=== PATIENT | female | born 1990 | race Caucasian/White ===

== ENCOUNTER 2024-02-10 12:55 | Outpatient (CLI) | payer OTHER, SELFPAY ==
--- OUTSIDE RECORDS SUMMARY | 2024-02-06 15:54 | XMS_ITS ---
Author Organization [facility] Address [address] [place] [address] Care Team Providers Care Storage Battery Inspector Name Role Phone None, None Primary Care Provider UnavailARON Sandy Unavailable [phone] Nicole Grigsby Unavailable [phone] REASON FOR VISIT CORRECTIVE THERAPIST Visit #3, Start of CORRECTIVE THERAPIST Care 07/15/23, Dr. Freedman, MTD/Chronic Throat Clearing Encounters Encounter Location Date Provider Diagnosis [facility] [place] [address] [facility] [address] [place] [address] 08/05/2023 Nicole Grigsby Dysphonia R49.0 and Chronic throat clearing R09.89 Assessments Encounter Date Diagnosis (ICD Code) Assessment Notes Treatment Notes Treatment Clinical Notes Section Notes 08/05/2023 Dysphonia (ICD-10 - R49.0) Cont plan. Review lower abdominal breathing exercises. Continue to advance easy/resonant voice at sentence and paragraph level 08/05/2023 Chronic throat clearing (ICD-10 - R09.89) Plan Of Treatment Treatment Notes Assessment Notes Dysphonia Cont plan. Review lo wer abdominal breathing exercises. Continue to advance easy/resonant voice at sentence and paragraph level Progress Notes * Cherelle LEALDOB:[birth year] (34 yo F)Acc No.[id number]:08/05/2023 Patient: Cherelle KERNS Provider: Evangelist Grigsby MS, [facility]-CORRECTIVE THERAPIST :1990 A ge:33 Y S ex:Female Date:08/05/2023 Address:[address] [place] [address] , [facility] Subjective: * Chief Complaints: * 1 . CORRECTIVE THERAPIST Visit #3, Start of CORRECTIVE THERAPIST Care 07/15/23, Dr. Freedman, MTD/Chronic Throat Clearing. * Medical History: Objective: * Vitals: * Examination: F indings: P atient will show a good understanding of optimum vocal hygiene patterns with min cues: GOAL PROGRESSING. Introduced lower abdominal breathing exercises with handout, demo and practice. Previous: Discussed the importance of optimum hydration and encouraged the patient to consume more water daily- the patient reports drinking about 80oz of water each day and 2 cups coffee.? Encouraged more frequent steam inhalation. Patient will show 100% accy with laryngeal massage and other manual techniques with min cues: GOAL MET. The patient demonstrated simple laryngeal massage with 100% accuracy independently, improved from max cues initially. Patient will show 90% accy with semi-occluded vocal tract exercises with min cues: GOAL PROGRESSING. The patient demonstrated straw phonation with 90% accuracy and min verbal cues to focus on vibrations in the lips. Previous: I ntroduced straw phonation with mod demo and verbal cues to focus on buzzy/easy. Explained rationale for SOVTs with good understanding shown. Patient will show 90% accy with resonant voice during conversational speech with min cues: GOAL PROGRESSING. The patient demonstrated resonant voice at word and phrase level with 80% accuracy and min demo and verbal cues to start with a /hm/ to initiate breath flow and to attend to final sounds. The patient additionally demonstrated easy and breath powered voice on yawn sigh exercises with 90% accuracy and min demo and verbal cues to keep it easy and use her head voice. Patient will use cough substitutes and reduce throat clearing frequency by at least 80%, per patient report: GOAL PROGRESSING. The patient reports that she has been clearing her throat less, and no throat clearing was noted during today's session. Previous: Educated patient about Irritable Larynx Syndrome and underlying mechanisms for chronic throat clearing. Copy of ILS article provided. Discussed rationale for behavioral intervention. Instructed pt in 3 throat clearing substitutes with demo, practice, and handout. Csr Technician Goal: The patient will be able to use normal voice quality 80% of the time in their daily environment as measured by patient report. Assessment: * Assessment: 1. D ysphonia - R49.0 (Primary) 2 . C hronic throat clearing - R09.89 ? Plan: * Treatment: * * Electronic signature of Layla Grigsby MS,CCC-CORRECTIVE THERAPIST on 02/06/2024 at 03:54 PM PLANT OPERATIONS MANAGER Sign off status: Pending * Provider: Evangelist Grigsby MS, CCC-CORRECTIVE THERAPIST Date: 0 08/05/2023 Generated for Printi ng/Fajoshg/eTransmitting on: 1 04/08/2023 03:54 PM PLANT OPERATIONS MANAGER History and Physical Notes * Examination Category Sub-Category Detail Notes Category Not es Findings Patient will show a good understanding of optimum vocal hygiene patterns with min cues: GOAL PROGRESSING. Introduced lower abdominal breathing exercises with handout, demo and practice. Previous: Discussed the importance of optimum hydration and encouraged the patient to consume more water daily- the patient reports drinking about 80oz of water each day and 2 cups coffee. Encouraged more frequent steam inhalation. Patient will show 100% accy with laryngeal massage and other manual techniques with min cues: GOAL MET. The patient demonstrated simple laryngeal massage with 100% accuracy independently, improved from max cues initially. Patient will show 90% accy with semi-occluded vocal tract exercises with min cues: GOAL PROGRESSING. The patient demonstrated straw phonation with 90% accuracy and min verbal cues to focus on vibrations in the lips. Previous: Introduced straw phonation with mod demo and verbal cues to focus on buzzy/easy. Explained rationale for SOVTs with good understanding shown. Patient will show 90% accy with resonant voice during conversational speech with min cues: GOAL PROGRESSING. The patient demonstrated resonant voice at word and phrase level with 80% accuracy and min demo and verbal cues to start with a /hm/ to initiate breath flow and to attend to final sounds. The patient additionally demonstrated easy and breath powered voice on yawn sigh exercises with 90% accuracy and min demo and verbal cues to keep it easy and use her head voice. Patient will use cough substitutes and reduce throat clearing frequency by at least 80%, per patient report: GOAL PROGRESSING. The patient reports that she has been clearing her throat less, and no throat clearing was noted during today's session. Previous: Educated patient about Irritable Larynx Syndrome and underlying mechanisms for chronic throat clearing. Copy of ILS article provided. Discussed rationale for behavioral intervention. Instructed pt in 3 throat clearing substitutes with demo, practice, and handout. [facility] Goal: The patient will be able to use normal voice quality 80% of the time in their daily environment as measured by patient report.
--- OUTSIDE RECORDS SUMMARY | 2024-02-06 15:54 | XMS_ITS ---
Author Organization [facility] Address [address] [place] [address] Care Team Providers Care Hydroelectric Plant Maintainer Name Role Phone None, None Primary Care Provider UnavailARON Sandy Unavailable [phone] Nicole Grigsby Unavailable [phone] REASON FOR VISIT OSD CLERK Visit #3, Start of OSD CLERK Care 07/15/23, Dr. Freedman, MTD/Chronic Throat Clearing Encounters Encounter Location Date Provider Diagnosis [facility] [address] [place] [address] 08/13/2023 Nicole Grigsby Dysphonia R49.0 and Chronic throat clearing R09.89 Assessments Encounter Date Diagnosis (ICD Code) Assessment Notes Treatment Notes Treatment Clinical Notes Section Notes 08/13/2023 Dysphonia (ICD-10 - R49.0) Cont plan. Review lower abdominal breathing exercises. Continue to advance easy/resonant voice at sentence and paragraph level 08/13/2023 Chronic throat clearing (ICD-10 - R09.89) Plan Of Treatment Treatment Notes Assessment Notes Dysphonia Cont plan. Review lo wer abdominal breathing exercises. Continue to advance easy/resonant voice at sentence and paragraph level Progress Notes * Cherelle LEALDOB:[birth year] (34 yo F)Acc No.[id number]:08/13/2023 Patient: Cherelle KERNS Provider: Evangelist Grigsby MS, [facility]-OSD CLERK :1990 A ge:33 Y S ex:Female Date:08/13/2023 Address:[address] [place] [address] , [facility] Subjective: * Chief Complaints: * 1 . OSD CLERK Visit #3, Start of OSD CLERK Care 07/15/23, Dr. Freedman, MTD/Chronic Throat Clearing. [...] clearing substitutes with demo, practice, and handout. [facility] Goal: The patient will be able to use normal voice quality 80% of the time in their daily environment as measured by patient report. Assessment: * Assessment: 1. D ysphonia - R49.0 (Primary) 2 . C hronic throat clearing - R09.89 ? Plan: * Treatment: * * Electronic signature of Layla Grigsby MS,CCC-OSD CLERK on 02/06/2024 at 03:54 PM DIRECT MAIL MARKETER Sign off status: Pending * Provider: Evangelist Grigsby MS, CCC-OSD CLERK Date: 0 08/13/2023 Generated for Aprili petey/Arabellag/eTransmitting on: 1 04/08/2023 03:54 PM DIRECT MAIL MARKETER History and Physical Notes * Examination Category [...] clearing substitutes with demo, practice, and handout. [facility] Goal: The patient will be able to use normal voice quality 80% of the time in their daily environment as measured by patient report.
--- OUTSIDE RECORDS SUMMARY | 2024-02-06 15:55 | XMS_ITS ---
Author Organization [facility] Address [address] [place] [address] Care Team Providers Care Private Investigator Name Role Phone None, None Primary Care Provider UnavailARON Sandy Unavailable [phone] Nicole Grigsby Unavailable [phone] REASON FOR VISIT AFRICANA STUDIES PROFESSOR Visit #2, Start of AFRICANA STUDIES PROFESSOR Care 07/15/23, Dr. Freedman, MTD/Chronic Throat Clearing Encounters Encounter Location Date Provider Diagnosis [facility] [address] [place] [address] 07/23/2023 Nicole Grigsby Dysphonia R49.0 and Chronic throat clearing R09.89 Assessments Encounter Date Diagnosis (ICD Code) Assessment Notes Treatment Notes Treatment Clinical Notes Section Notes 07/23/2023 Dysphonia (ICD-10 - R49.0) Cont plan. Review lower abdominal breathing exercises. Continue to advance easy/resonant voice at sentence and paragraph level 07/23/2023 Chronic throat clearing (ICD-10 - R09.89) Plan Of Treatment Treatment Notes Assessment Notes Dysphonia Cont plan. Review lo wer abdominal breathing exercises. Continue to advance easy/resonant voice at sentence and paragraph level Next Appt Details Follow Up: 2 Weeks, Reason: Progress Notes * Cherelle LEALDOB:[birth year] (33 yo F)Acc No.[id number]:07/23/2023 Patient: Evangelist CONRADCherelle GAXIOLA Provider: Evangelist Grigsby MS, CF-AFRICANA STUDIES PROFESSOR :1990 A ge:33 Y S ex:Female Date:07/23/2023 Address:[address] [place] [address] , [facility] Subjective: * Chief Complaints: * S LP Visit #2, Start of AFRICANA STUDIES PROFESSOR Care 07/15/23, Dr. 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 She states that she has been doing her exercises at least once a day, sometimes twice. * Medical History: * Medications: Objective: * Vitals: * Examination: F indings: [...] clearing substitutes with demo, practice, and handout. [facility] Goal: The patient will be able to use normal voice quality 80% of the time in their daily environment as measured by patient report. Assessment: * Assessment: 1. D ysphonia - R49.0 (Primary) 2 . C hronic throat clearing - R09.89 Plan: * Treatment: * Procedure Codes: 9 2507 SPEECH/HEARING THERAPY * Follow Up: 2 Weeks * * Electronically co-signed by Doretha Bullock MA,CCC-AFRICANA STUDIES PROFESSOR on 07/23/2023 at 12:26 PM CDT Sign off status: Completed true * Provider: Evangelist Grigsby MS, CF-AFRICANA STUDIES PROFESSOR Date: 0 07/23/2023 Generated for Ailyn angelo/Corina/Jebitting on: 1 04/08/2023 03:54 PM REGIONAL LOSS PREVENTION MANAGER History and Physical Notes * HPI (History of Present Illness) Category Sub-Category Detail Notes Category Not es --Narrative-- The patient re ports that 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 She states that she has been doing her exercises at least once a day, sometimes twice Examination Category Sub-Category Detail Notes Category Not [...] clearing substitutes with demo, practice, and handout. [facility] [place] Goal: The patient will be able to use normal voice quality 80% of the time in their daily environment as measured by patient report.
--- OUTSIDE RECORDS SUMMARY | 2024-02-06 15:55 | XMS_ITS | Patient Health Record ---
Author Organization [facility] Address [address] [place] [address] Care Team Providers Care Big Data Solutions Architect Name Role Phone None, None Primary Care Provider ARON Cobian Unavailable [phone] Nicole Grigsby Unavailable [phone] Allergies No Known Allergies Results Component Value Reference Range Notes Barium Swallow (esophagram) Reviewed date:06/24/2023 04:39:04 PM Interpretation: Performing Lab: Notes/Report: Reason For Referral No Information Social History Tobacco Use: Social History Observation Description Date Details (start date - stop date) Never Smoker NA - NA Tobacco use/smoking Question Answer Notes Are you a nonsmoker Alcohol Screen Question Answer Notes Did you have a drink contain ing alcohol in the past year? Yes How often did you have 6 or more drinks on one occasion in the past year? Less than monthly (1 point) How many drinks did you have on a typical day when you were drinking in the past year? 1 or 2 drinks (0 point) How often did you have a dri nk containing alcohol in the past year? 2 to 3 times a week (3 points) Problems Problem Type SNOMED Code ICD Code Onset Dates Problem Status W/U Status Risk Notes Problem 80305678 Dysphagia, unspecified type (R13.10) Active confirmed Problem 191988876 Chronic throat clearing (R09.89) Active confirmed Vital Signs Height-cm 162.56 cm 06/19/2023 Weight-kg 59.78 kg 06/19/2023 Height 64 in 06/19/2023 Weight 131.8 lbs 06/19/2023 BMI 22.62 kg/m2 06/19/2023 Procedures Procedure Date Ordered Date Performed Result Body Sit e LARYNGOSCOPY, FLEXIBLE FIBEROPTIC 06/19/2023 06/20/2023 N/ A TARE MAN COUGH - Videostroboscopy 4% Lidocaine, Nasal decongestant 06/24/2023 06/27/2023 N/A TARE MAN COUGH - Evaluation and treatment 06/24/2023 06/27/2023 N/A Encounters Encounter Location Date Provider Diagnosis [facility] [place] [address] [facility] [address] [place] [address] 06/19/2023 ARON MERINO Dysphagia, unspecified type R13.10 and Chronic throat clearing R09.89 [facility] [place] [address] [place] [address] 07/15/2023 Nicole Bader Dysphonia R49.0 and Chronic throat clearing R09.89 [facility] [address] [place] [address] 07/23/2023 Nicole Bader Dysphonia R49.0 and Chronic throat clearing R09.89 [facility] [address] [place] [address] 06/24/2023 ARON MERINO Chronic throat clearing R09.89 Assessments Encounter Date Diagnosis (ICD Code) Assessment Notes Treatment Notes Treatment Clinical Notes Section Notes 06/19/2023 Dysphagia, unspecified type (ICD-10 - R13.10) Patient with some chronic mild dysphagia. Will obtain an esophagram to rule out esophageal pathology. I will contact her with results when available. Chronic nonspecific throat clearing issues. I suspect habitual issue. Might consider voice therapy evaluation to help her address that but will await results of the esophagram before initiating referral. 06/19/2023 Chronic throat clearing (ICD-10 - R09.89) Patient with some chronic mild dysphagia. Will obtain an esophagram to rule out esophageal pathology. I will contact her with results when available. Chronic nonspecific throat clearing issues. I suspect habitual issue. Might consider voice therapy evaluation to help her address that but will await results of the esophagram before initiating referral. 06/24/2023 Chronic throat clearing (ICD-10 - R09.89) 07/15/2023 Dysphonia (ICD-10 - R49.0) 4-6 visits, beginning weekly, then spread out across 90 days, are recommended to address goals listed below. Px is judged to be excellent due to patient motivation and stimulability for improved voice quality during straw phonation. Videostrobe images were reviewed in detail with the patient with good understanding shown. Patient will show a good understanding of optimum vocal hygiene patterns with min cues: GOAL PROGRESSING. Discussed the importance of optimum hydration and encouraged the patient to consume more water daily- the patient reports drinking about 80oz of water each day and 2 cups coffee. Encouraged more frequent steam inhalation. Patient will show 100% accy with laryngeal massage and other manual techniques with min cues: GOAL PROGRESSING. Simple laryngeal and SCM massage were conducted with demo, practice, and handout. Patient will show 90% accy with semi-occluded vocal tract exercises with min cues: GOAL PROGRESSING. Introduced straw phonation with mod demo and verbal cues to focus on buzzy/easy. Explained rationale for SOVTs with good understanding shown. Patient will show 90% accy with resonant voice during conversational speech with min cues Patient will use cough substitutes and reduce throat clearing frequency by at least 80%, per patient report: GOAL PROGRESSING. Educated patient about Irritable Larynx Syndrome and underlying mechanisms for chronic throat clearing. Copy of ILS article provided. Discussed rationale for behavioral intervention. Instructed pt in 3 throat clearing substitutes with demo, practice, and handout. [facility] Goal: The patient will be able to use normal voice quality 80% of the time in their daily environment as measured by patient report. 07/15/2023 Chronic throat clearing (ICD-10 - R09.89) 07/23/2023 Dysphonia (ICD-10 - R49.0) Cont plan. Review lower abdominal breathing exercises. Continue to advance easy/resonant voice at sentence and paragraph level 07/23/2023 Chronic throat clearing (ICD-10 - R09.89) Plan Of Treatment No Information Insurance Providers Payer Name Payer Address Payer Phone Subscriber Number Group Number Insured Name Patient Relationship to Insured Coverage Start Date Coverage End Date [facility] [address] [address] [place], [place] [id number] [phone] [id number] Cherelle Moulton Self - patient is the insured Medical (General) History Medical History History ICD Code Conditions/Illness:: Asthma/lung disease Other Medical problems:: Hx of mild anem ia
--- NOTE | 2024-02-10 13:00 | CRLHL7_ITS ---
For Patients: As a result of the Century Cures Act, medical imaging exams and procedure reports are released immediately into your electronic medical record. You may view this report before your referring provider. If you have questions, please contact your health care provider. INDICATION: First trimester scan, establish dates. COMPARISON: None. TECHNIQUE: Real-time werner-scale imaging of the pelvis was performed. FINDINGS: Sonographic imaging demonstrates a single living intrauterine gestation. The embryo demonstrates a regular cardiac rate measuring 176 beats per minute. The embryo`s crown-rump length measurement of 1.6 cm corresponds to a gestational age of 8 weeks 0 days with a sonographic due date of 09/21/2024. There is a normal-appearing yolk sac. There are no gross abnormalities noted within the embryo at this early state of development. The gestational sac has a normal appearance. There is a 1.3 x 0.7 x 1.4 cm perigestational hemorrhage. The amount of fluid within the sac appears appropriate for gestational age. The cervix is closed. The myometrium appears normal. The ovaries are of normal size. Corpus luteal cyst left ovary. There are no suspicious fluid collections noted in the cul-de-sac. IMPRESSION: Single living intrauterine with sonographic gestational age 8 weeks 0 days and a sonographic due date 09/21/2024. Inferior subchorionic hemorrhage measures 1.3 x 0.7 x 1.4 cm. Dictated by Anand Ledesma MD @ 02/11/2024 7:09:20 AM (Electronically Signed)
== END 2024-02-10 12:56 | disposition home or self-care (01) ==
LOC: US 12:56
PROVIDERS: Visit Provider Midwife
DX: Z34.91 Encounter for supervision of normal pregnancy, unspecified, first trimester (principal); O20.9 Hemorrhage in early pregnancy, unspecified; Z3A.08 8 weeks gestation of pregnancy
CPT/HCPCS: 76817; 82565; 82570; 83021; 84156; 84443; 84450; 84460; 84520; 84550; 86592; 86703; 86704; 86706; 86762; 86787; 86803; 86850; 86900; 86901; 87086; 87340; 87491; 87591

== ENCOUNTER 2024-02-10 14:25 | Outpatient (CLI) | payer OTHER, SELFPAY ==
[2024-02-10 19:52] LABS: Chlamydia DNA Amplified* NOT DETECTED (No Detected); GC DNA Amplified* NOT DETECTED (No Detected)
== END 2024-02-10 14:26 | disposition home or self-care (01) ==
PROVIDERS: PCP Midwife; Visit Provider Midwife
DX: Z34.91 Encounter for supervision of normal pregnancy, unspecified, first trimester (principal)
CPT/HCPCS: 82565; 82570; 83020; 83021; 84156; 84443; 84450; 84460; 84520; 84550; 85660; 86592; 86703; 86704; 86706; 86762; 86787; 86803; 86850; 86900; 86901; 87086; 87340; 87491; 87591

== ENCOUNTER 2024-02-11 13:09 | Outpatient (CLI) | payer OTHER, SELFPAY | END 2024-02-11 13:10 | disposition home or self-care (01) | PROVIDERS: PCP Midwife; Visit Provider Midwife | DX: Z34.91 Encounter for supervision of normal pregnancy, unspecified, first trimester (principal); R79.89 Other specified abnormal findings of blood chemistry | CPT/HCPCS: 84439; 84481; 86376 ==

== ENCOUNTER 2024-02-13 10:45 | Outpatient (CLI) | payer OTHER, SELFPAY | END 2024-02-13 10:46 | disposition home or self-care (01) | LOC: NFLDREF 02-15 21:13 | PROVIDERS: Visit Provider Midwife | DX: Z34.81 Encounter for supervision of other normal pregnancy, first trimester (principal) | CPT/HCPCS: 82570; 84156 ==

== ENCOUNTER 2024-03-11 08:15 | Outpatient (CLI) | payer OTHER, SELFPAY | END 2024-03-11 08:16 | disposition home or self-care (01) | LOC: LKVREF 08:16 | PROVIDERS: Visit Provider Midwife | DX: R79.89 Other specified abnormal findings of blood chemistry (principal) | CPT/HCPCS: 84443 ==

== ENCOUNTER 2024-05-04 13:40 | Outpatient (CLI) | payer OTHER, SELFPAY | END 2024-05-04 13:41 | disposition home or self-care (01) | LOC: US 13:40 | PROVIDERS: Visit Provider Advanced Practice Midwife | DX: Z34.92 Encounter for supervision of normal pregnancy, unspecified, second trimester (principal); Z3A.20 20 weeks gestation of pregnancy | CPT/HCPCS: 76805; 84443 ==

== ENCOUNTER 2024-06-29 09:49 | Outpatient (CLI) | payer OTHER, SELFPAY ==
--- NOTE | 2024-06-29 10:15 | CRLHL7_ITS ---
For Patients: As a result of the Century Cures Act, medical imaging exams and procedure reports are released immediately into your electronic medical record. You may view this report before your referring provider. If you have questions, please contact your health care provider. OB ULTRASOUND GROWTH TRANSABDOMINAL Clinical History: LMP: 12/09/2023. ITA by US: 09/21/2024. GA: 28 w, 0 d. Single. Comparison: 05/04/2024 and 02/09/2025. INDICATION: Growth. Placental lakes. TECHNIQUE: Real time werner scale imaging of the fetus was performed. Transabdominal imaging performed. CERVIX: Measurement: 4.3. POSITIONING: Vertex. AMNIOTIC FLUID: 3.1 cm. SDP (N: greater than 2 x 1 cm) PLACENTA: Technique: Transabdominal. PLACENTA POSITION: Anterior. DOPPLER: heart rate: 150 bpm. BIOMETRY: BPD: 6.8 cm. 27 w, 2 d, 17.5 percent. HC: 25.4 cm. 27 w, 4 d, 10.6 percent. AC: 23.7 cm. 28 w, 0 d, 43.6 percent. FL: 5.0 cm. 26 w, 6 d, 10.3 percent. FL/AC ratio: 21.1 percent. HC/AC ratio: 1.1. EFW: 1093 g. Weight: 2 lbs, 7 oz. age by this US: 27 w, 3 d. ITA by this US: 09/25/2024. Percentile by ITA: 22.2 percent. IMPRESSION: 1. Sonographic gestational age 27 weeks 3 days and sonographic due date 09/25/2024. Good correlation with dates. Normal interval growth. 2. Estimated weight 22nd percentile. Abdominal circumference 44th percentile. 3. Small placental rae adjacent to the placental cord insertion is not significantly changed. Anand Ledesma M.D. Diagnostic Radiologist [email or web address] SP/Dictated by: Anand Ledesma MD @ 06/29/2024 11:37:00 AM (Electronically Signed)
== END 2024-06-29 09:50 | disposition home or self-care (01) ==
LOC: US 10:07
PROVIDERS: Visit Provider Advanced Practice Midwife
DX: Z34.83 Encounter for supervision of other normal pregnancy, third trimester (principal); O43.93 Unspecified placental disorder, third trimester; Z3A.28 28 weeks gestation of pregnancy
CPT/HCPCS: 76816; 84443; 86592

== ENCOUNTER 2024-08-10 09:16 | Outpatient (CLI) | payer OTHER, SELFPAY ==
--- NOTE | 2024-08-10 09:15 | CRLHL7_ITS ---
For Patients: As a result of the Cures Act, medical imaging exams and procedure reports are released immediately into your electronic medical record. You may view this report before your referring provider. If you have questions, please contact your health care provider. OB ULTRASOUND FOLLOW-UP/LIMITED, 08/10/2024 CLINICAL HISTORY: Growth. Size less than dates. COMPARISON: 06/29/2024, 05/04/2024. TECHNIQUE: Real time werner scale imaging of the fetus was performed. Transabdominal imaging performed. FINDINGS: ITA by LMP/US: 09/21/2024. GA: 34 weeks 0 days. Gestation: Single. Cervix: Not visualized. Positioning: Vertex. Amniotic Fluid: 5.8 cm SDP. Placenta: Technique: TA. Placenta Position: Anterior. Dopplers: Heart Rate: 137 bpm. BIOMETRY: BPD: 8.5 cm, 34 weeks 1 day. 52% HC: 31.3 cm, 35 weeks 0 days. 40% AC: 31.4 cm, 35 weeks 2 days. 86% FL: 5.8 cm, 31 weeks 6 days. 4% FL/AC Ratio: 19.62% HC/AC Ratio: 1.00. EFW: 2382 g, 5 lb 4 oz. Age by this US: 34 weeks 1 day. ITA by this US: 09/20/2024. Percentile by ITA: 51% IMPRESSION: 1. Sonographic gestational age 34 weeks 1 day and sonographic due date 09/20/2024. Good correlation with dates. Normal interval growth. 2. Estimated weight 51st percentile. Abdominal circumference 86th percentile. Femur length 4th percentile. Anand Ledesma M.D. Diagnostic Radiologist PNP [email or web address] Transcribed: 12:37 pm DW/Dictated by: Anand Ledesma MD @ 08/10/2024 11:28:00 AM (Electronically Signed)
--- OUTSIDE RECORDS SUMMARY | 2024-08-11 02:26 | XMS_ITS | Encounter Summary ---
Author Organization [place] Address [address] [place] [address]. [place] [address] Care Team Providers Care Sack Sewer Name Role Phone Melia Ramos ZEE CNM Unavailable No Ref-Primary, Physician Primary Care Provider Lulu Sanchez WELFARE ELIGIBILITY INTERVIEWER CNM Unavailable [phone] MandeepJassi pittman WELFARE ELIGIBILITY INTERVIEWER CNM Unavailable Petty Fernandes APPARATUS OPERATOR Unavailable [phone] Dione Barone APRN APPARATUS OPERATOR Unavailable Jassi Kaufman WELFARE ELIGIBILITY INTERVIEWER CNM Unavailable Encounter Details Date Type Department Care Team (Late st Contact Info) Description 07/18/2023 [facility] Care [address] [place] [address] [facility] Social History Tobacco Use Types Packs/Day Years Used Date Smoking Tobacco: Never Smokeless Tobacco: Never Alcohol Use Standard Drinks/Week Comments No 0 (1 standard drink = 0.6 oz pur e alcohol) PHQ-2 Answer Date Recorded PHQ-2 Score 0 02/25/2023 [place] Depression Scale Answer Date Recorded Last EPDS Total Score Not on file 01/08/2023 The thought of harming myself has occurred to me . Never 01/08/2023 Adolescent Education Answer Date Record ed Getting School Help Needed Not on file 11/03 Education Answer Date Recorded What is the highest level of school you have completed or the highest degree you have received? Master's degree (e.g., MA, MS, Gisell, MEd, SYSTEM CONTROLLER, VON) 05/15/2022 Comments No Sex and Gender Information Value Date Recorded Sex Assigned at Not on file Legal Sex Female 5:00 AM SALES MARKETING COORDINATOR Gender Identity Not on file Sexual Orientation Not on file Occupation Industry Job Start Date Job End Date RN Not on file Not on file Not on file documented as of this encounter Plan of Treatment Not on file documented as of this encounter Visit Diagnoses Not on filedocumented in this encounter Additional Health Concerns Assessment Noted Time PHQ-9 Depression Total Score: 2 02/25/19 24 10:58 AM SALES MARKETING COORDINATOR documented as of this encounter Care Teams Sack Sewer Relationship Specialty Start Date End Date No Ref-Primary, Physician PCP - General 01/11/23 Melia Ramos APRN CNM [address] [place] [address] Assigned OBGYN Provider 01/05/23 Lulu Sanchez APRN CN [address] [place] [address] Hydro Pneumatic Tester manufacturing supervisor 01/22/23 Jassi Kaufman APRN CN [address] [place] [address] Hydro Pneumatic Tester Midwives 02/13/23 Petty Fernandes CNP [address] [place] [address] Assigned PCP 11/04/23 Dione Barone APRN APPARATUS OPERATOR [address] [address] Assigned Cancer Care Provider 12/04/23 Jassi Kaufman APRN CNM [address] [place] [address] Assigned OBGYN Provider 05/03/24 documented as of this encounter
--- OUTSIDE RECORDS SUMMARY | 2024-08-11 02:26 | XMS_ITS | Encounter Summary ---
Author Organization [facility] Address [address] [place] [address]. [place] [address] Care Team Providers Care Diesel Mechanic Apprentice Name Role Phone Melia Ramos ZEE CNM Unavailable No Ref-Primary, Physician Primary Care Provider Lulu Sanchez GOVERNMENT CONTRACTS MANAGER CNM Unavailable [phone] MandeepJassi pittman GOVERNMENT CONTRACTS MANAGER CNM Unavailable Petty Fernandes INTEGRATED PROGRAM TEACHER Unavailable [phone] Dione Barone APRN INTEGRATED PROGRAM TEACHER Unavailable Jassi Kaufman APRN CNM Unavailable Encounter Details Date Type Department Care Team (Late st Contact Info) Description 01/22/2024 [facility] Medical Advice [facility] [address] [place] [address] Dione Barone APRN INTEGRATED PROGRAM TEACHER [address] [place] [address] Social History Tobacco Use Types Packs/Day Years Used Date Smoking Tobacco: Never Smokeless Tobacco: Never Alcohol Use Standard Drinks/Week Comments Yes 0 (1 standard drink = 0.6 oz pur e alcohol) 0-2 drinks/day Social Connection and Isolation Panel [NHANES] A nswer Date Recorded Frequency of Communication with Friends and Fami ly Not on file 10/16/2023 How often do you get together with friends or re latives? Twice a week 10/16/2023 Attends Oriental Orthodox Services Not on file 10/15 Active Member of Clubs or Organizations Not on f ile 10/16/2023 Attends Club or Organization Meetings Not on nikki e 10/16/2023 Marital Status Not on file 10/16/2023 PHQ-2 Answer Date Recorded PHQ-2 Score 0 02/25/2023 [facility] a[facility] campusal [facility] - Occupational Stress Questionnaire Answer Date Recorded Do you feel stress - tense, restless, nervous, or anxious, or unable to sleep at night because your mind is troubled all the time - these days? Only a little 10/16/2023 Exercise Vital Sign Answer Date Recorde d On average, how many days pe r week do you engage in moderate to strenuous exercise (like a brisk walk)? 4 days 10/16/2023 On average, how many minutes do you engage in exercise at this level? 40 min 10/16/2023 [place] Depression Scale Answer Date Recorded Last EPDS Total Score Not on file 01/08/2023 The thought of harming myself has occurred to me . Never 01/08/2023 Adolescent Education Answer Date Record ed Getting School Help Needed Not on file 11/03 Food Insecurity Answer Date Recorded Within the past 12 months, d id you worry that your food would run out before you got money to buy more? No 10/16/2023 Within the past 12 months, d id the food you bought just not last and you didn t have money to get more? No 10/16/2023 Housing Stability Answer Date Recorded Do you have housing? (Housin g is defined as stable permanent housing and does not include staying outside in a car, in a tent, in an abandoned building, in an overnight half-way, or couch-surfing.) Yes 10/16/2023 Are you worried about losing your housing? No 10/16/2023 Financial Resource Strain Answer Date R ecorded Within the past 12 months, h ave you or your family members you live with been unable to get utilities (heat, electricity) when it was really needed? No 10/16/2023 Transportation Needs Answer Date Record ed Within the past 12 months, h as lack of transportation kept you from medical appointments, getting your medicines, non-medical meetings or appointments, work, or from getting things that you need? No 10/16/2023 Interpersonal Safety Answer Date Record ed Do you feel physically and e motionally safe where you currently live? Yes 10/17/2023 Within the past 12 months, h ave you been hit, slapped, kicked or otherwise physically hurt by someone? No 10/17/2023 Within the past 12 months, h ave you been humiliated or emotionally abused in other ways by your partner or ex-partner? No 10/17/2023 Education Answer Date Recorded What is the highest level of school you have completed or the highest degree you have received? Master's degree (e.g., MA, MS, Gisell, MEd, CHROME TANNER, VON) 05/15/2022 Comments Unknown Sex and Gender Information Value Date Recorded Sex Assigned at Not on file Legal Sex Female 5:00 AM BANKING ANALYST Gender Identity Not on file Sexual Orientation [...] Total Score: 2 02/25/19 24 10:58 AM BANKING ANALYST documented as of this encounter Care Teams Diesel Mechanic Apprentice Relationship Specialty Start Date End Date No Ref-Primary, Physician PCP - General 01/11/23 Melia Ramos APRN CNM [address] [facility] [address] [place] [address] Assigned OBGYN Provider 01/05/23 Lulu Sanchez APRN CNM [address] [place] [address] Field Broomer equipment monitor phototypesetting 01/22/23 Jassi Kaufman APRN CNM [address] [place] [address] Field Broomer Midwives 02/13/23 Petty Fernandes, INTEGRATED PROGRAM TEACHER [address] [place] [address] Assigned PCP 11/04/23 Dione Barone APRN INTEGRATED PROGRAM TEACHER [address] [place] [address] Assigned Cancer Care Provider 12/04/23 Jassi Kaufman APRN CN [address] [place] [address] Assigned OBGYN Provider 05/03/24 documented as of this encounter
--- OUTSIDE RECORDS SUMMARY | 2024-08-11 02:26 | XMS_ITS | Clinical Summary ---
Author Organization [place] Address [address] [place] [address] Care Team Providers Care Parts Counter Representative Name Role Phone No Ref-Primary, Physician Primary Care Provider Lulu Sanchez APRN CNM Unavailable [phone] Jassi Kaufman APRN CNM Unavailable Petty Fernandes STOPE MINER Unavailable [phone] Dione Barone APRN STOPE MINER Unavailable Jassi Kaufman APRN CNM Unavailable Allergies Active Allergy Reactions Criticality Noted Date Comments No Known Drug Allergy 11/17/2008 Medications Vit-Fe Fumarate-FA ( MULTIVITAMIN W/IRON) 27-0.8 MG tabletIndications :Encounter for supervision of normal first in first trimester Take 1 tablet by mouth daily 90 tablet 3 05/15/2022 Active Probiotic Product (PROBIOTIC DAILY) CAPS 05/15/2022 Active Ferrous Sulfate (IRON PO) Take 65 mg by mouth every 72 hours. Active Active Problems Problem Noted Date Diagnosed Date Anemia due to blood loss, acute 01/08/2023 Asthma, exercise induced 08/01/2020 Mild persistent asthma 10/17/2009 Dysmenorrhea 10/04/2009 Chronic nonallergic rhinitis Overview (10/17/2009): All negative, Pt refused IDs Diagnostic skin and sensitization tests Resolved Problems Problem Noted Date Diagnosed Date Resolved Date Routine follow-up 02/27/2023 04/25/2023 Lactating mother 01/08/2023 02/25/2023 Gestational hypertension 01/08/2023 Indication for care in labor or delivery 01/06/2023 02/25/2023 Gestational hypertension, third trimester 01/06/2023 02/25/2023 Post-term , 40-42 weeks of gestation 12/28/1902/25/2023 Encounter for supervision of normal first in third trimester 06/15/2022 02/25/2023 Overview (10/31/2022): FOB: Janusz ITA: Dec 30, 2022 A+/Posterior/? 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, trans from [facility] Exercise-induced bronchospasm 12/06/2022 Immunizations Immunization Administration Dates Next Due COVID-19 MONOVALENT 12+ (Pfizer) 03/31/2020,02/12 DTP-Hib 07/09/1996, 3,1991,1991,1991 Flu, Unspecified 11/11/2021 HIB, Unspecified 1991,1991, 2 Hepatitis A (VAQTA)(ADULT 19+) 03/14/2016 Hepatitis B, Peds (Engerix-B/Recombivax HB) 04/16/2003,02/07/2000,12/18/1999 Influenza Vaccine >6 months,quad, PF 07/2022,11/09/2021,11/28/2017,2016 Influenza Vaccine Trivalent (FluBlok) 10/17/2023 Influenza Vaccine, 6+MO IM (QUADRIVALENT W/PRESERVATIVES) 10/27/2019 Influenza,INJ,MDCK,PF,Quad >6mo(Flucelvax) 11/25/2020,10/28/2019,12/02/2018 MMR (MMRII) 08/19/2019,04/16/2003,04/14/1992 OPV, trivalent, live 07/09/1996,01/13/19 93,1991,1991 TDAP (Adacel,Boostrix) 10/05/2022,07/12/2020 TDAP Vaccine (Adacel) 08/18/2010 Td (Adult), Adsorbed 04/16/2003 Typhoid IM 03/14/2016 Yellow Fever 03/14/2016 Family History Medical History Relation Comments Depression Father Hypertension Father Bladder Cancer Maternal Grandfather Diabetes Maternal Grandfather Heart Disease Maternal Grandfather Hypertension Maternal Grandfather Melanoma Maternal Grandfather Diabetes Mother DM2 after pregna ncy Diabetes Type 2 Mother Hyperlipidemia Mother Hypertension Mother Hypothyroidism Mother Ovarian Cancer Mother No genetic testi ng Breast Cancer Paternal Aunt 1 Underwent geneti c testing and is reportedly positive for either BRCA1 or BRCA2 Breast Cancer Paternal Aunt 2 Hereditary Breast and Ovaria n Cancer Syndrome Paternal Cousin BRCA1+ Heart Disease Paternal Grandfather Relation Status Comments Father Alive Maternal Grandfather Alive Maternal Grandmother Alive Mother Alive Paternal Aunt 1 Alive Paternal Aunt 2 Alive Paternal Cousin Alive Paternal Grandfather Paternal Grandmother Sister Alive Social History Tobacco Use Types Packs/Day Years Used Date Smoking Tobacco: Never Smokeless Tobacco: Never Tobacco Cessation:Counseling Given: Not Answered Alcohol Use Standard Drinks/Week Comments Yes 0 (1 standard drink = 0.6 oz pur e alcohol) 0-2 drinks/day Social Connection and Isolation Panel [NHANES] A nswer Date Recorded Frequency of Communication with Friends and Fami ly Not on file 10/16/2023 How often do you get together with friends or re latives? Twice a week 10/16/2023 Attends Sabianism Services Not on file 10/15 Active Member of Clubs or Organizations Not on f ile 10/16/2023 Attends Club or Organization Meetings Not on nikki e 10/16/2023 Marital Status Not on file 10/16/2023 PHQ-2 Answer Date Recorded PHQ-2 Score 0 02/25/2023 [facility] - Occupational Stress Questionnaire Answer Date Recorded [...] exercise at this level? 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 on file Last Filed Vital Signs Vital Sign Reading Time Taken Comments Blood Pressure 120/84 10/31/2023 10:00 AM CDT Pulse 102 10/17/2023 9:46 AM CDT Temperature 37.1 C (98.7 F) 10/17/2023 9:46 AM CDT Respiratory Rate 16 10/17/2023 9:46 AM CDT Oxygen Saturation 99% 10/17/2023 9:46 AM CDT Inhaled Oxygen Concentration - - Weight 56 kg (123 lb 8 oz) 10/31/2023 10:00 AM C DT Height 162.6 cm (5' 4) 10/31/2023 10:00 AM CDT Body Mass Index 21.2 10/31/2023 10:00 AM CDT Plan of Treatment Health Maintenance Due Date Last Done Comments ANNUAL REVIEW OF HM ORDERS 1991 PNEUMOCOCCAL VACCINE: PEDIATRICS (0 to 5 YEARS) AND AT-RISK PATIENTS (6 to 49 YEARS) (1 of 2 - PCV) 2010 ASTHMA ACTION PLAN 09/23/2012 09/24/2011, 0 09/20/2010, 10/03/2009 COVID-19 VACCINE ( season) 2023 03/31/2020, 03/10/2020 PHQ-2 (once per calendar year) 2024 02/25/2023, 02/25/2023, 01/22/2023, Additional history exists ASTHMA CONTROL TEST 04/15/2024 10/17/2023 YEARLY PREVENTIVE VISIT 10/16/2024 10/17/19 24, 12/24/2019, 10/09/2011, Additional history exists HPV TEST 02/26/2028 02/25/2023 PAP 02/26/2028 02/25/2023, 07/0 06/2018, 08/15/2018 ADVANCE CARE PLANNING 10/16/2028 10/17/2023 DTAP/TDAP/TD VACCINE (9 - Td or Tdap) 10/05/2032 10/05/2022, 07/12/2020, 08/18/2010, Additional history exists ZOSTER VACCINE (1 of 2) 2041 HEPATITIS B VACCINE Completed 04/16/2003, 02/07/2000, 12/18/1999 HEPATITIS C SCREENING Completed 05/22/2022 HIV SCREENING Completed 05/22/2022 INFLUENZA VACCINE Completed 10/17/2023, , 11/11/2021, Additional history exists HPV VACCINE Aged Out No longer eligi ble based on patient's age to complete this topic MENINGITIS VACCINE Aged Out No longer eligible based on patient's age to complete this topic Procedures Procedure Name Priority Date/Time Associated Diagnosis Comments GYNECOLOGIC CYTOLOGY Routine 02/25/2023 10:34 AM QUALITY INTERN Encounter for screening for cervical cancer HPV HIGH RISK TYPES DNA CERVICAL Routine 02/25/2023 10:34 AM QUALITY INTERN Encounter for screening for cervical cancer HIV ANTIGEN ANTIBODY COMBO Routine 05/22/2022 9:52 AM CDT Encounter for supervision of normal first in first trimester HEPATITIS C ANTIBODY Routine 05/22/2022 9:52 AM CDT Encounter for supervision of normal first in first trimester ASTHMA ACTION PLAN Routine 09/24/2011 5: 52 PM CDT Mild persistent asthma from Last 3 Months or Most Recently Relevant to Health Maintenance Results * Pap thin layer screen with HPV - recommended age 30 - 65 years (02/25/2023 10:34 AM QUALITY INTERN) Interpretation Negative for Intraepithelial Lesion or Malignancy (NILM) 02/28/2023 1:31 PM QUALITY INTERN [facility] at 1331 QUALITY INTERN Comment Papanicolaou Test Limitations: Cervical cytology is a screening test with limited sensitivity, and regular screening is critical for cancer prevention. Pap tests are primarily effective for the diagnosis/prevent ion of squamous cell carcinoma, not adenocarcinoma or other cancers. 02/28/2023 1:31 PM QUALITY INTERN [facility] Specimen Adequacy Satisfactory for evaluation, endocervical/orr sformation zone component present 02/28/2023 1:31 PM QUALITY INTERN [facility] Clinical Information post- 02/28/2023 1:31 PM QUALITY INTERN [facility] Reflex Testing Yes regardless of result 02/28/2023 1:31 PM QUALITY INTERN [facility] Previous Abnormal? No 02/28/2023 1:31 PM QUALITY INTERN [facility] Performing Labs The technical component of this testing was completed at [facility] 02/28/2023 1:31 PM QUALITY INTERN [facility] Brushing CERVIX UTERI STRUCTURE / Unknown Non-blood Collection / Unknown 02/25/2023 10:34 AM QUALITY INTERN 02/25/2023 12:51 PM QUALITY INTERN Jassi Kaufman APRN CN LAB - BEAKER AP F inal Result [facility] Specialty Lab [address] [facility], [address] [address], [facility] [phone] * HPV High Risk Types DNA Cervical (02/25/2023 10:34 AM QUALITY INTERN) Other HR HPV Negative Negative 03/04/2023 6:53 AM [facility] HPV16 DNA Negative Negative 03/04/2023 6:53 AM QUALITY INTERN [facility]LECULAR DIAGNOSTICS HPV18 DNA Negative Negative 03/04/2023 6:53 AM [facility] FINAL DIAGNOSIS This patient's sample is negative for HPV DNA. This test was developed and its performance characteristics determined by the [facility], Molecular Diagnostics Laboratory. It has not been cleared or approved by the FDA. The laboratory is regulated under CLIA as qualified to perform high-complexity testing. This test is used for clinical purposes. It should not be regarded as investigational or for research. METHODOLOGY: The Lolis Valdemar 4800 system uses automated extraction, simultaneous amplification of HPV (L1 region) and beta-globin, followed by real time detection of fluorescent labeled HPV and beta globin using specific oligonucleotide probes. The test specifically identifies types HPV 16 DNA and HPV 18 DNA while concurrently detecting the rest of the high risk types (31, 33, 35, 39, 45, 51, 52, 56, 58, 59, 66 or 68). COMMENTS: This test is not intended for use as a screening device for woman under age 30 with normal cervical cytology. Results should be correlated with cytologic and histologic findings. Close clinical followup is recommended. 03/04/2023 6:53 AM QUALITY INTERN [facility] DIAGNOSTICS Brushing CERVIX UTERI STRUCTURE / Unknown Non-blood Collection / Unknown 02/25/2023 10:34 AM QUALITY INTERN 03/01/2023 8:25 AM QUALITY INTERN us Jassi Kaufman APRN CN LAB - BLOOD ORDER MIKEL Final Result [facility] DIAGNOSTICS Molecular Diagnostics [address] [facility], [address] [address], [facility] [phone] * HIV Antigen Antibody Combo (05/22/2022 9:52 AM CDT) HIV Antigen Antibody Combo Nonreactive Nonreactive 05/23/2022 10:09 AM CDT SPECIALTY CORE/PROT/EN DO Comment:HIV-1 p24 Ag & HIV-1 /HIV-2 Ab Not Detected Blood STRUCTURE OF RIGHT UPPER LIMB / Unknown Venipuncture / Unknown 05/22/2022 9:52 AM CDT 05/22/2022 9:52 AM CDT Ashlyn Chaves CN LAB - BLOOD ORDERABLES F inal Result [facility] SPECIALTY CORE/PROT/ENDO UM Specialty Core/Prot/Endo [address] [facility] [address] [facility], Room [address] [address], [facility] [phone] * Hepatitis C antibody (05/22/2022 9:52 AM CDT) Hepatitis C Antibody Nonreactive Nonreactive 05/23/2022 10:09 AM CDT SPECIALTY CORE/PROT/EN DO Blood STRUCTURE OF RIGHT UPPER LIMB / Unknown Venipuncture / Unknown 05/22/2022 9:52 AM CDT 05/22/2022 9:52 AM CDT Narrative [facility] SPECIALTY CORE/PROT/ENDO - 05/23/2022 10:09 AM CDT Assay performance characteristics have not been established for newborns, infants, and children. Ashlyn Chaves [facility] LAB - BLOOD ORDERABLES F inal Result [facility] SPECIALTY CORE/PROT/ENDO UM Specialty Core/Prot/Endo [address] [facility] [address] Building, [address] [phone] from Last 3 Months or Most Recently Relevant to Health Maintenance Insurance [facility] [id number] [place] [id number] [facility] Advance Directives For more information, please contact: [phone] * Full Code (Latest Code Status on File) Date Activated Date Inactivated Comments 01/06/2023 8:29 AM 01/08/2023 3:10 PM All basic and advanced life-sustaining interventions are performed as appropriate Question Answer Comments Code status determined by: Discussion with lenard nt/ legal decision maker Care Teams Parts Counter Representative Relationship Specialty Start Date End Date No Ref-Primary, Physician PCP - General 01/11/23 Lulu Sanchez APRN CNM [address] [place] [address] Human Resource Internship properties supervisor 01/22/23 Jassi Kaufman APRN CNM [address] [place] [address] Human Resource Internship Midwives 02/13/23 Petty Fernandes, STOPE MINER [address] [place] [address] Assigned PCP 11/04/23 Dione Barone APRN STOPE MINER [address] [place] [address] Assigned Cancer Care Provider 12/04/23 Jassi Kaufman APRN CNM [address] [facility] [address] [place] [address] Assigned OBGYN Provider 05/03/24
--- OUTSIDE RECORDS SUMMARY | 2024-08-11 02:26 | XMS_ITS | Patient Health Record ---
Author Organization [facility] Address [address] [place] [address] Care Team Providers Care Concrete Finisher Apprentice Name Role Phone None, None Primary Care Provider UnavailARON Sandy Unavailable [phone] Nicole Grigsby Unavailable [phone] Allergies No Known Allergies Reason For Referral No Information Social History Tobacco Use: Social History Observation Description Date Details (start date - stop date) Never Smoker NA - NA Social History Alcohol Use: Social Info Question Answer Notes Recreational drugs Recreational Drug Use: No Alcohol Screen Did you have a drink containing alcohol in the past year? Yes How often did you have 6 or more drinks on one occasion in the past year? Less than monthly (1 point) How many drinks did you have on a typical day when you were drinking in the past year? 1 or 2 drinks (0 point) How often did you have a drink containing alcohol in the past year? 2 to 3 times a week (3 points) Tobacco Use: Social Info Question Answer Notes Tobacco use/smoking Are you a nonsmoker Additional Details Category Social Info Options Details Household: Occupation Registered nurs e Problems Problem Type SNOMED Code ICD Code Onset Dates Problem Status W/U Status Risk Notes Problem Dysphagia (20453638) Dysphagia, unspecified type (R13.10) Active confirmed Problem Chronic throat clearing (R09.89) Active confirmed Plan Of Treatment No Information Insurance Providers Payer Name Payer Address Payer Phone Subscriber Number Group Number Insured Name Patient Relationship to Insured Coverage Start Date Coverage End Date R [address] [address] [place], [place] [id number] Cherelle Moulton Self - patient is the insured Medical (General) History Medical History History ICD Code Conditions/Illness:: Asthma/lung disease Other Medical problems:: Hx of mild anem ia
--- OUTSIDE RECORDS SUMMARY | 2024-08-11 02:26 | XMS_ITS | Encounter Summary ---
Author Organization [facility] Address [address] [place] [address] Care Team Providers Care Drop Board Man Name Role Phone Melia Ramos ZEE CNM Unavailable No Ref-Primary, Physician Primary Care Provider Lulu Sanchez MILK INSPECTOR CNM Unavailable [phone] MandeepJassi pittman MILK INSPECTOR CNM Unavailable Petty Fernandes QUALITY ASSURANCE MANAGER Unavailable [phone] Dione Barone APRN QUALITY ASSURANCE MANAGER Unavailable [phone] Jassi Kaufman MILK INSPECTOR CNM Unavailable Encounter Details Date Type Department Care Team (Late st Contact Info) Description 03/13/2024 [facility] Medical Advice [facility] [address] [place] [address] [facility] Social History Tobacco Use Types Packs/Day Years [...] re latives? Twice a week 10/16/2023 Attends [employer] Services Not on file 10/15 Active Member of Clubs or Organizations Not on f ile 10/16/2023 Attends Club or Organization Meetings Not on nikki e 10/16/2023 Marital Status Not on file 10/16/2023 PHQ-2 Answer Date Recorded PHQ-2 Score 0 02/25/2023 [facility] - Occupational Stress Questionnaire Answer Date Recorded [...] exercise at this level? 40 min 10/16/2023 [place] Depression Scale Answer Date Recorded Last EPDS [...] Answer Date Recorded Do you have housing? (Cedrick g is defined as stable permanent housing and does not include staying outside in a car, in a tent, in an abandoned building, in an overnight chcf, or couch-surfing.) Yes 10/16/2023 Are you worried [...] Master's degree (e.g., MA, MS, Gisell, MEd, MICA PLATE LAYER HAND, VON) 05/15/2022 Comments Unknown Sex and Gender Information Value Date Recorded Sex Assigned at Not on file Legal Sex Female 5:00 AM QUALITATIVE EXECUTIVE RESEARCHER Gender Identity Not on file Sexual Orientation [...] Total Score: 2 02/25/19 24 10:58 AM QUALITATIVE EXECUTIVE RESEARCHER documented as of this encounter Care Teams Drop Board Man Relationship Specialty Start Date End Date No Ref-Primary, Physician PCP - General 01/11/23 Melia Ramos APRN CNM [address] [place] [address] Assigned OBGYN Provider 01/05/23 Lulu Sanchez APRN CNM [address] [place] [address] Animal Feeder scaffold setter 01/22/23 Jassi Kaufman APRN CNM [address] [address] Animal Feeder Midwives 02/13/23 Petty Fernandes, QUALITY ASSURANCE MANAGER [address] [place] [address] Assigned PCP 11/04/23 Dione Barone APRN QUALITY ASSURANCE MANAGER [address] [place] [address] Assigned Cancer Care Provider 12/04/23 Jassi Kaufman APRN CNM [address] [address] Assigned OBGYN Provider 05/03/24 documented as of this encounter
--- OUTSIDE RECORDS SUMMARY | 2024-08-11 02:26 | XMS_ITS | Encounter Summary ---
Author Organization [facility] Address [address] [place] [address] Care Team Providers Care Cable Engineer Outside Plant Name Role Phone Betty Navarro OCCUPATIONAL THERAPIST'S ASSISTANT HOME ENERGY AUDITOR Primary Care Prov ider Melia Ramos APRN CNM Unavailable No Ref-Primary, Physician Primary Care Provider Lulu Sanchez OCCUPATIONAL THERAPIST'S ASSISTANT CNM Unavailable Jassi Kaufman APRN CNM Unavailable Petty Fernandes HOME ENERGY AUDITOR Unavailable [phone] Dione Barone OCCUPATIONAL THERAPIST'S ASSISTANT HOME ENERGY AUDITOR Unavailable Jassi Kaufman APRN CNM Unavailable Reason for Visit * Reason Onset Date Comments MyChart Communication 01/09/2023 Encounter Details Date Type Department Care Team (Late st Contact Info) Description 01/09/2023 MyC Medical Advice [facility] [address] [address] Melia Ramos APRN CNM [address] [address] MyChart Communication Social History Tobacco Use Types Packs/Day Years Used Date Smoking Tobacco: Never Smokeless Tobacco: Never Alcohol Use Standard Drinks/Week Comments No 0 (1 standard drink = 0.6 oz pur e alcohol) PHQ-2 Answer Date Recorded PHQ-2 Score 0 09/06/2022 [place] Depression Scale Answer Date Recorded Last EPDS [...] Master's degree (e.g., MA, MS, Gisell, MEd, BLOOD BANK TECHNICIAN, VON) 05/15/2022 Comments No Sex and Gender Information Value Date Recorded Sex Assigned at Not on file Legal Sex Female 5:00 AM SENIOR DATA MODELER Gender Identity Not on file Sexual Orientation Not on file Occupation Industry Job Start Date Job End Date RN Not on file Not on file Not on file documented as of this encounter Plan of Treatment Not on file documented as of this encounter Visit Diagnoses Not on filedocumented in this encounter Additional Health Concerns Assessment Noted Time PHQ-9 Depression Total Score: 0 05/16/19 9:19 AM CDT documented as of this encounter Care Teams Cable Engineer Outside Plant Relationship Specialty Start Date End Date Betty Navarro APRN HOME ENERGY AUDITOR [address] [place] [address] PCP - General wire stitcher 09/05/10 01/10/23 No Ref-Primary, Physician PCP - General 01/11/23 Melia Ramos APRN CNShawn [address] [facility] [address] [id number] Assigned OBGYN Provider 01/05/23 Lulu Sanchez APRN CNShawn [address] [place], [place] [address] Technical Instructor wire stitcher 01/22/23 Jassi Kaufman APRN CNM [address] [facility] [address] [address] Technical Instructor Midwives 02/13/23 Petty Fernandes, HOME ENERGY AUDITOR [address] [place] [address] Assigned PCP 11/04/23 Dione Barone APRN HOME ENERGY AUDITOR [address] [place] [address] Assigned Cancer Care Provider 12/04/23 Jassi Kaufman APRN CN [address] [facility] [address] [place] [address] Assigned OBGYN Provider 05/03/24 documented as of this encounter
--- OUTSIDE RECORDS SUMMARY | 2024-08-11 02:26 | XMS_ITS | Encounter Summary ---
Author Organization [facility] Address [address] [place] [address] Care Team Providers Care Dry Goods Clerk Name Role Phone Betty Navarro GRID INSPECTOR NUTRITIONAL SERVICES DIRECTOR Primary Care Prov ider Kenney Sara CNM Unavailable [phone] Marisol Quintero GRID INSPECTOR CNM Unavailable + Cherelle Jones GRID INSPECTOR CNM Unavailable + Melia Ramos GRID INSPECTOR CNM Unavailable + Melia Ramos APRN CNM Unavailable + Cherelle Jones GRID INSPECTOR CNM Unavailable + Melia Ramos GRID INSPECTOR CNM Unavailable + No Ref-Primary, Physician Primary Care Provider Lulu Sanchez APRN CNM Unavailable [phone] Jassi Kaufman APRN CNM Unavailable Petty Fernandes NUTRITIONAL SERVICES DIRECTOR Unavailable [phone] Dione Barone APRN NUTRITIONAL SERVICES DIRECTOR Unavailable Jassi Kaufman GRID INSPECTOR CNM Unavailable Encounter Details Date Type Department Care Team (Late st Contact Info) Description 05/14/2022 MyC Medical [facility]ice [facility] [address] [facility] [address] [place] [address] Ruby Ivan RN Social History Tobacco Use Types Packs/Day Years Used Date Smoking Tobacco: Never Smokeless Tobacco: Never Alcohol Use Standard Drinks/Week Comments No 0 (1 standard drink = 0.6 oz pur e alcohol) PHQ-2 Answer Date Recorded PHQ-2 Score 0 05/15/2022 Comments No Sex and Gender Information Value Date Recorded Sex Assigned at Not on file Legal Sex Female 5:00 AM VOLUNTEER ASSISTANT Gender Identity Not on file Sexual Orientation Not on file COVID-19 Exposure Response Date Recorded In the last 10 days, have yo u been in contact with someone who was confirmed or suspected to have Coronavirus/COVID-19? No / Unsure 05/15/2022 7:59 AM CDT documented as of this encounter Plan of Treatment Not on file documented as of this encounter Visit Diagnoses Not on filedocumented in this encounter Additional Health Concerns Assessment Noted Time PHQ-9 Depression Total Score: 0 05/16/19 23 9:19 AM CDT documented as of this encounter Care Teams Dry Goods Clerk Relationship Specialty Start Date End Date Betty Navarro APRN NUTRITIONAL SERVICES DIRECTOR [address] [place] [address] PCP - General casualty underwriter 09/05/10 01/10/23 No Ref-Primary, Physician PCP - General 01/11/23 Corrina Moulton CNM [address] [facility] [address] [place] [address] Assigned OBGYN Provider 06/23/22 Marisol Echavarria APRN CNShawn [address] [address] [place] [address] Assigned OBGYN Provider 11/10/22 Cherelle Jones APRN CN [address] [place] [address] Assigned OBGYN Provider 10/20/22 Melia Ramos APRN CN [address] [place] [address] Assigned OBGYN Provider 10/27/22 Melia Ramos APRN CN [address] [place] [address] Assigned OBGYN Provider 01/05/23 Cherelle Jones APRN CN [address] [place] [address] Assigned OBGYN Provider 12/29/2201/04 Melia Ramos APRN [facility] [address] [place] [address] Assigned OBGYN Provider 11/17/2212/28 Lulu Sanchez APRN CN [address] [place], [place] [address] Core Drilling Supervisor casualty underwriter 01/22/23 Jassi Kaufman APRN CN [address] [place] [address] Core Drilling Supervisor Midwives 02/13/23 Petty Fernandes, NUTRITIONAL SERVICES DIRECTOR [address] [place], [place] [address] Assigned PCP 11/04/23 Dione Barone APRN NUTRITIONAL SERVICES DIRECTOR [address] [place], [place] [address] Assigned Cancer Care Provider 12/04/23 Jassi Kaufman APRN CNM [address] [address] Assigned OBGYN Provider 05/03/24 documented as of this encounter
--- OUTSIDE RECORDS SUMMARY | 2024-08-11 02:27 | XMS_ITS | Encounter Summary ---
Author Organization [facility] Address [address] [place] [address]. [place] [address] Care Team Providers Care Jacquard Card Cutter Name Role Phone Melia Ramos ZEE CNM Unavailable No Ref-Primary, Physician Primary Care Provider Lulu Sanchez INTERVENTIONAL NURSE CNM Unavailable [phone] MandeepJassi pittman INTERVENTIONAL NURSE CNM Unavailable Petty Fernandes FULL STACK SOFTWARE DEVELOPER Unavailable [phone] Dione Barone APRN FULL STACK SOFTWARE DEVELOPER Unavailable Jassi Kaufman INTERVENTIONAL NURSE CNM Unavailable Encounter Details Date Type Department Care Team (Late st Contact Info) Description 07/23/2023 MyC Medical Advice [facility] [address] [place] [address] Mitra Lam, [address] [address] Social History Tobacco Use Types Packs/Day Years Used Date Smoking Tobacco: Never Smokeless Tobacco: Never Alcohol Use Standard Drinks/Week Comments No 0 (1 standard drink = 0.6 oz pur e alcohol) PHQ-2 Answer Date Recorded PHQ-2 Score 0 02/25/2023 [place] Depression Scale Answer Date Recorded Last EPDS [...] Master's degree (e.g., MA, MS, Gisell, MEd, STONE POLISHER, VON) 05/15/2022 Comments Unknown Sex and Gender Information Value Date Recorded Sex Assigned at Not on file Legal Sex Female 5:00 AM DICTIONARY EDITOR Gender Identity Not on file Sexual Orientation [...] Total Score: 2 02/25/19 24 10:58 AM DICTIONARY EDITOR documented as of this encounter Care Teams Jacquard Card Cutter Relationship Specialty Start Date End Date No Ref-Primary, Physician PCP - General 01/11/23 Melia Ramos APRN CN [address] [place] [address] Assigned OBGYN Provider 01/05/23 Lulu Sanchez APRN CN [address] [place] [address] Maid Cleaning Cooking retail service representative 01/22/23 Jassi Kaufman APRN CN [address] [place] [address] Maid Cleaning Cooking Midwives 02/13/23 Petty Fernandes, FULL STACK SOFTWARE DEVELOPER [address] [place] [address] Assigned PCP 11/04/23 Dione Barone APRN FULL STACK SOFTWARE DEVELOPER [address] [place] [address] Assigned Cancer Care Provider 12/04/23 Jassi Kaufman APRN CN [address] [place] [address] [address] [place] [id number] Assigned OBGYN Provider 05/03/24 documented as of this encounter
--- OUTSIDE RECORDS SUMMARY | 2024-08-11 02:27 | XMS_ITS | Encounter Summary ---
Author Organization [facility] Address [address] [place] [address]. [place] [address] Care Team Providers Care Senior Windows Systems Engineer Name Role Phone Melia Ramos ZEE CNM Unavailable No Ref-Primary, Physician Primary Care Provider Lulu Sanchez CONTINUOUS ABSORPTION PROCESS OPERATOR CNM Unavailable [phone] MandeepJassi pittman CONTINUOUS ABSORPTION PROCESS OPERATOR CNM Unavailable Petty Fernandes PARADICHLOROBENZENE TENDER Unavailable [phone] Dione Barone APRN PARADICHLOROBENZENE TENDER Unavailable Jassi Kaufman CONTINUOUS ABSORPTION PROCESS OPERATOR CNM Unavailable Encounter Details Date Type Department Care Team (Late st Contact Info) Description 10/22/2023 MyC Medical Advice [facility] [address] [place] [address] Mitra Lam, [address] [address] Social History Tobacco Use Types [...] re latives? Twice a week 10/16/2023 Attends [employer] Not on file 10/15 Active Member of Clubs or Organizations Not on f ile 10/16/2023 Attends Club or Organization Meetings Not on nikki e 10/16/2023 Marital Status Not on file 10/16/2023 PHQ-2 Answer Date Recorded PHQ-2 Score 0 02/25/2023 [facility] - Occupational Stress Questionnaire Answer [...] exercise at this level? 40 min 10/16/2023 [place] Depression Scale Answer Date Recorded Last EPDS [...] in an abandoned building, in an overnight usp, or couch-surfing.) Yes 10/16/2023 Are you worried [...] Master's degree (e.g., MA, MS, Gisell, MEd, ACTIVITIES COORDINATOR, VON) 05/15/2022 Comments Unknown Sex and Gender Information Value Date Recorded Sex Assigned at Not on file Legal Sex Female 5:00 AM TRAVEL CLERK Gender Identity Not on file Sexual Orientation [...] Total Score: 2 02/25/19 24 10:58 AM TRAVEL CLERK documented as of this encounter Care Teams Senior Windows Systems Engineer Relationship Specialty Start Date End Date No Ref-Primary, Physician PCP - General 01/11/23 Melia Ramos APRN CNM [address] [address] Assigned OBGYN Provider 01/05/23 Lulu Sanchez APRN CNM [address] [place] [address] City Letter Carrier air reduction equipment operator 01/22/23 Jassi Kaufman APRN CNM [address] [place] [address] [address] [address] City Letter Carrier Midwives 02/13/23 Petty Fernandes, PARADICHLOROBENZENE TENDER [address] [place] [address] Assigned PCP 11/04/23 Dione Barone APRN PARADICHLOROBENZENE TENDER [address] [place] [address] Assigned Cancer Care Provider 12/04/23 Jassi Kaufman APRN CNM [address] [place] [address] [address] [address] Assigned OBGYN Provider 05/03/24 documented as of this encounter
--- OUTSIDE RECORDS SUMMARY | 2024-08-11 02:27 | XMS_ITS | Encounter Summary ---
Author Organization [facility] Address [address] [place] [address]. [place] [address] Care Team Providers Care Vocational Psychologist Name Role Phone Melia Ramos ZEE CNM Unavailable No Ref-Primary, Physician Primary Care Provider Lulu Sanhcez CADASTRAL ENGINEER CNM Unavailable [phone] MandeepJassi pittman CADASTRAL ENGINEER CNM Unavailable Petty Fernandes ADAPTIVE PHYSICAL EDUCATION SPECIALIST Unavailable [phone] Dione Barone APRN ADAPTIVE PHYSICAL EDUCATION SPECIALIST Unavailable Jassi Kaufman APRN CNM Unavailable Encounter Details Date Type Department Care Team (Late st Contact Info) Description 10/28/2023 MyC Medical Advice [facility] [address] [place] [address] Dione Barone APRN ADAPTIVE PHYSICAL EDUCATION SPECIALIST [address] [place] [address] Social History Tobacco Use Types [...] re latives? Twice a week 10/16/2023 Attends [employer] Services Not on file 10/15 Active Member of Clubs or Organizations Not on f ile 10/16/2023 Attends Club or Organization Meetings Not on nikki e 10/16/2023 Marital Status Not on file 10/16/2023 PHQ-2 Answer Date Recorded PHQ-2 Score 0 02/25/2023 [facility] - Occupational Stress Questionnaire Answer [...] exercise at this level? 40 min 10/16/2023 [place] Depression Scale Answer Date Recorded Last EPDS [...] in an abandoned building, in an overnight care home, or couch-surfing.) Yes 10/16/2023 Are you worried [...] Master's degree (e.g., MA, MS, Gisell, MEd, WAX ROOM SUPERVISOR, VON) 05/15/2022 Comments Unknown Sex and Gender Information Value Date Recorded Sex Assigned at Not on file Legal Sex Female 5:00 AM TAWER Gender Identity Not on file Sexual Orientation [...] Total Score: 2 02/25/19 24 10:58 AM TAWER documented as of this encounter Care Teams Vocational Psychologist Relationship Specialty Start Date End Date No Ref-Primary, Physician PCP - General 01/11/23 Melia Ramos APRN CNM [address] [facility] [address] [place] [address] Assigned OBGYN Provider 01/05/23 Lulu Sanchez APRN CNM [address] [place] [address] Plant Utilities Engineer structural manager 01/22/23 Jassi Kaufman APRN CNM [address] [address] Plant Utilities Engineer Midwives 02/13/23 Petty Fernandes, ADAPTIVE PHYSICAL EDUCATION SPECIALIST [address] [place] [address] Assigned PCP 11/04/23 Dione Barone APRN ADAPTIVE PHYSICAL EDUCATION SPECIALIST [address] [place] [address] Assigned Cancer Care Provider 12/04/23 Jassi Kaufman APRN CN [address] [address] [address] Assigned OBGYN Provider 05/03/24 documented as of this encounter
--- OUTSIDE RECORDS SUMMARY | 2024-08-11 02:27 | XMS_ITS | Encounter Summary ---
Author Organization [facility] Address [address] [place] [address]. [place] [address] Care Team Providers Care Abalone Sheller Name Role Phone Melia Ramos ZEE CNM Unavailable No Ref-Primary, Physician Primary Care Provider Lulu Sanchez ROLLING MACHINE OPERATOR CNM Unavailable [phone] MandeepJassi pittman ROLLING MACHINE OPERATOR CNM Unavailable Petty Fernandes PYROTECHNIST Unavailable [phone] Dioen Barone APRN PYROTECHNIST Unavailable Jassi Kaufman ROLLING MACHINE OPERATOR CNM Unavailable Encounter Details Date Type Department Care Team (Late st Contact Info) Description 07/29/2023 MyC Medical Advice [facility] [address] [place] [address] Nav Yeboah Social History Tobacco Use Types Packs/Day Years Used Date Smoking Tobacco: Never Smokeless Tobacco: Never Alcohol Use Standard Drinks/Week Comments No 0 (1 standard drink = 0.6 oz pur e alcohol) PHQ-2 Answer Date Recorded PHQ-2 Score 0 02/25/2023 [place] Depression Scale Answer Date Recorded Last EPDS [...] Master's degree (e.g., MA, MS, Gisell, MEd, LIBERAL ARTS AND HUMANITIES CHAIR, VON) 05/15/2022 Comments Unknown Sex and Gender Information Value Date Recorded Sex Assigned at Not on file Legal Sex Female 5:00 AM SKIP LOCATOR Gender Identity Not on file Sexual Orientation [...] Total Score: 2 02/25/19 24 10:58 AM SKIP LOCATOR documented as of this encounter Care Teams Abalone Sheller Relationship Specialty Start Date End Date No Ref-Primary, Physician PCP - General 01/11/23 Melia Ramos APRN CN [address] [address] Assigned OBGYN Provider 01/05/23 Lulu Sanchez APRN CN [address] [place] [address] Patient Safety Tech coal hiker 01/22/23 Jassi Kaufman APRN CN [address] [address] Patient Safety Tech Midwives 02/13/23 Petty Fernandes CNP [address] [place] [address] Assigned PCP 11/04/23 Dione Barone APRN PYROTECHNIST [address] [place] [address] Assigned Cancer Care Provider 12/04/23 Jassi Kaufman APRN CNM [address] [facility] [address] [place] [address] Assigned OBGYN Provider 05/03/24 documented as of this encounter
--- OUTSIDE RECORDS SUMMARY | 2024-08-11 02:27 | XMS_ITS | Encounter Summary ---
Author Organization [facility] Address [address] [place] [address]. [place] [address] Care Team Providers Care Supervisor Capacitor Processing Name Role Phone Melia Ramos ZEE CNM Unavailable No Ref-Primary, Physician Primary Care Provider Lulu Sanchez STEM ROLLER CNM Unavailable [phone] MandeepJassi pittman STEM ROLLER CNM Unavailable Petty Fernandes SENIOR INVESTIGATOR Unavailable [phone] Dione Barone APRN SENIOR INVESTIGATOR Unavailable Jassi Kaufman STEM ROLLER CNM Unavailable Encounter Details Date Type Department Care Team (Late st Contact Info) Description 10/02/2023 MyC Medical Advice [facility] [address] [place] [address] Mitra Lam, [address] [address] Social History Tobacco Use Types Packs/Day Years Used Date Smoking Tobacco: Never Smokeless Tobacco: Never Alcohol Use Standard Drinks/Week Comments No 0 (1 standard drink = 0.6 oz pur e alcohol) PHQ-2 Answer Date Recorded PHQ-2 Score 0 02/25/2023 [place] Depression Scale Answer Date Recorded Last EPDS [...] Master's degree (e.g., MA, MS, Gisell, MEd, SERVICE INSPECTOR, VON) 05/15/2022 Comments Unknown Sex and Gender Information Value Date Recorded Sex Assigned at Not on file Legal Sex Female 5:00 AM CTRS Gender Identity Not on file Sexual Orientation [...] Total Score: 2 02/25/19 24 10:58 AM CTRS documented as of this encounter Care Teams Supervisor Capacitor Processing Relationship Specialty Start Date End Date No Ref-Primary, Physician PCP - General 01/11/23 Melia Ramos APRN CN [address] [place] [address] Assigned OBGYN Provider 01/05/23 Lulu Sanchez APRN CN [address] [place] [address] Wood Type Finisher vice president of nursing 01/22/23 Jassi Kaufman APRN CN [address] [place] [address] Wood Type Finisher Midwives 02/13/23 Petty Fernandes, SENIOR INVESTIGATOR [address] [place] [address] Assigned PCP 11/04/23 Dione Barone APRN SENIOR INVESTIGATOR [address] [address] Assigned Cancer Care Provider 12/04/23 Jassi Kaufman APRN CN [address] [place] [address] [address] [place] [id number] Assigned OBGYN Provider 05/03/24 documented as of this encounter
--- OUTSIDE RECORDS SUMMARY | 2024-08-11 02:27 | XMS_ITS | Encounter Summary ---
Author Organization [place] Address [address] [facility] [place] [address] Care Team Providers Care Manager Hardware Name Role Phone Betty Navarro LEAD JAVA DEVELOPER ARCHITECT MARKET RESEARCH ASSISTANT Primary Care Prov ider Melia Ramos LEAD JAVA DEVELOPER ARCHITECT CNM Unavailable Cherelle Jones LEAD JAVA DEVELOPER ARCHITECT CNM Unavailable No Ref-Primary, Physician Primary Care Provider Lulu Sanchez LEAD JAVA DEVELOPER ARCHITECT CNM Unavailable Jassi Kaufman LEAD JAVA DEVELOPER ARCHITECT CNM Unavailable Petty Fernandes MARKET RESEARCH ASSISTANT Unavailable [phone] Dione Barone LEAD JAVA DEVELOPER ARCHITECT MARKET RESEARCH ASSISTANT Unavailable Jassi Kaufman LEAD JAVA DEVELOPER ARCHITECT CNM Unavailable Encounter Details Date Type Department Care Team (Late st Contact Info) Description 01/02/2023 Ricardo Medical Advice [facility] [place] [address] [facility] [address] [id number] Melia Ramos APRN CNM [address] [facility] [address] [place] [address] Social History Tobacco Use Types Packs/Day Years Used Date Smoking Tobacco: Never Smokeless Tobacco: Never Alcohol Use Standard Drinks/Week Comments No 0 (1 standard drink = 0.6 oz pur e alcohol) PHQ-2 Answer Date Recorded PHQ-2 Score 0 09/06/2022 Lincoln Depression Scale Answer Date Recorded Lincoln Depression Scale Total 0 06/15/2022 The thought of harming myself has occurred to me . Never 06/15/2022 Adolescent Education Answer Date Record ed Getting School Help Needed Not on file 11/03 Education Answer Date Recorded What is the highest level of school you have completed or the highest degree you have received? Master's degree (e.g., MA, MS, Gisell, MEd, ORGAN GRINDER, VON) 05/15/2022 Comments Yes Sex and Gender Information Value Date Recorded Sex Assigned at Not on file Legal Sex Female 5:00 AM ARTIST AND REPERTOIRE MANAGER Gender Identity Not on file Sexual Orientation [...] documented as of this encounter Care Teams Manager Hardware Relationship Specialty Start Date End Date Betty Navarro APRN MARKET RESEARCH ASSISTANT [address] [address] PCP - General automobile lights assembler 09/05/10 01/10/23 No Ref-Primary, Physician PCP - General 01/11/23 Melia Ramos APRN CNM [address] [place] [address] Assigned OBGYN Provider 01/05/23 Cherelle Jones APRN CN [address] [place] [address] Assigned OBGYN Provider 12/29/2201/04 Lulu Sanchez APRN CNShawn [address] [place] [address] Exotic Dancer automobile lights assembler 01/22/23 Jassi Kaufman APRN CNM [address] [facility] [address] [place] [address] Exotic Dancer Midwives 02/13/23 Petty Fernandes MARKET RESEARCH ASSISTANT [address] [place] [address] Assigned PCP 11/04/23 Dione Barone APRN MARKET RESEARCH ASSISTANT [address] [facility] [place] [address] Assigned Cancer Care Provider 12/04/23 Jassi Kaufman APRN CNM [address] [facility] [address] [facility] [address] [address] Assigned OBGYN Provider 05/03/24 documented as of this encounter
--- OUTSIDE RECORDS SUMMARY | 2024-08-11 02:27 | XMS_ITS | Encounter Summary ---
Author Organization [place] Address [address] [place] [address]. [place] [address] Care Team Providers Care Television Station Manager Name Role Phone Melia Ramos ZEE CNM Unavailable No Ref-Primary, Physician Primary Care Provider Lulu Sanchez NITROGLYCERIN SEPARATOR OPERATOR CNM Unavailable [phone] MandeepJassi pittman NITROGLYCERIN SEPARATOR OPERATOR CNM Unavailable Petty Fernnades ANTIQUE COLLECTOR Unavailable [phone] Dione Barone APRN ANTIQUE COLLECTOR Unavailable [phone] Jassi Kaufman APRN CNM Unavailable Encounter Details Date Type Department Care Team (Late st Contact Info) Description 10/23/2023 MyC Medical Advice [facility] [address] [place] [address] Dione Barone APRN ANTIQUE COLLECTOR [address] [place] [address] Social History Tobacco Use Types [...] re latives? Twice a week 10/16/2023 Attends [employer] Services Not on file 10/15 Active Member of Clubs or Organizations Not on f ile 10/16/2023 Attends Club or Organization Meetings Not on nikki e 10/16/2023 Marital Status Not on file 10/16/2023 PHQ-2 Answer Date Recorded PHQ-2 Score 0 02/25/2023 [facility] - Occupational Stress Questionnaire Answer Date Recorded [...] exercise at this level? 40 min 10/16/2023 Norman Depression Scale Answer Date Recorded Last EPDS [...] in an abandoned building, in an overnight mcc, or couch-surfing.) Yes 10/16/2023 Are you worried [...] Master's degree (e.g., MA, MS, Gisell, MEd, FOOD SERVICE CLERK, VON) 05/15/2022 Comments Unknown Sex and Gender Information Value Date Recorded Sex Assigned at Not on file Legal Sex Female 5:00 AM STRIPE MATCHER Gender Identity Not on file Sexual Orientation [...] Total Score: 2 02/25/19 24 10:58 AM STRIPE MATCHER documented as of this encounter Care Teams Television Station Manager Relationship Specialty Start Date End Date No Ref-Primary, Physician PCP - General 01/11/23 Melia Ramos APRN CNM [address] [facility] [address] [place] [address] Assigned OBGYN Provider 01/05/23 Lulu Sanchez APRN CNM [address] [place] [address] Delivery Department Supervisor patient care associate 01/22/23 Jassi Kaufman APRN CNM [address] [address] Delivery Department Supervisor Midwives 02/13/23 Petty Fernandes, ANTIQUE COLLECTOR [address] [place] [address] Assigned PCP 11/04/23 Dione Barone APRN ANTIQUE COLLECTOR [address] [place] [address] Assigned Cancer Care Provider 12/04/23 Jassi Kaufman APRN CN [address] [address] Assigned OBGYN Provider 05/03/24 documented as of this encounter
== END 2024-08-10 09:17 | disposition home or self-care (01) ==
LOC: US 09:16
PROVIDERS: Visit Provider Advanced Practice Midwife
DX: O36.5930 Maternal care for other known or suspected poor fetal growth, third trimester, not applicable or unspecified (principal); Z3A.34 34 weeks gestation of pregnancy
CPT/HCPCS: 76816

== ENCOUNTER 2024-08-26 10:32 | Outpatient (CLI) | payer OTHER, SELFPAY | END 2024-08-26 10:33 | disposition home or self-care (01) | LOC: NFLDREF 08-28 02:56 | PROVIDERS: Visit Provider Advanced Practice Midwife | DX: Z34.83 Encounter for supervision of other normal pregnancy, third trimester (principal) | CPT/HCPCS: 87081; 87653 ==

== ENCOUNTER 2024-09-17 11:06 | Inpatient (IN) | payer OTHER, SELFPAY ==
[2024-09-17] VITALS (35 sets, daily range): BP systolic 85–124; BP diastolic 50–75; PULSE 69–110; RESP 16–18; TEMP 36.4–36.7; O2SAT 96–100; BMI 26.3
--- NOTE | 2024-09-17 12:05 | W.PM.LDBA ---
Subjective History of Present Illness Date Seen: 09/17/24 Narrative: Cherelle is a 34 yo at 39 3/7 weeks gestation being admitted to Labor and Delivery for spontaneous onset of labor. She reports her labor started over night. She was able to get some small naps in between contractions. She is coping well. She is undecided about pain management but considering epidural. She denies any leaking of fluid but has had some bloody show. She was seen yesterday in clinic and had a membrane sweep performed at her visit. She is supported in labor by her , Janusz. Her full history and physical was dictated by CAIT Hawkins on 09/02/2024. Please see this for details. Specific Issues/Plans G2 P 1 Partner: Janusz,?Son: Monster IOL scheduled for 09/19/24 (aware that will get a call to verify) H&P completed by Ansley Thorpe CNM on 09/02/24? ? #Hx HTN PP previous . Recommend baby asa daily after 12w? Proteinuria baseline found on NOB- 24hr normal, and repeat normal. #Elevated TSH in - Additional labs drawn 02/11/24. Start levo as indicated by [employer] [facility]. Started 25mcg levo 02/14/24 to get in 1st tri target. Other thyroid labs normal. TSH 03/11-1.05 (stable) 2nd trimester TSH: 2.5 3rd trimester TSH: 2.55 #Not immune to Hep B- recommended in , pt had series previously is a nurse dose 1: given 05/04/24 ? dose 2: given 06/03/24 dose 3: no sooner than 08/24/24- wants if no immunity after 2nd series considered a non-responder and no further Hep B vaccines recommended #Placental lakes on FAS growth at 28 weeks: EFW 22%, small placental rae near cord insert, no significant change Imaging:? 1st trimester: ITA based on US.. 02/10/2024-?Single living intrauterine with sonographic gestational age 8 weeks 0 days and a sonographic due date 09/21/2024. Inferior subchorionic hemorrhage measures 1.3 x 0.7 x 1.4 cm. Anatomy scan: 1. Living fetus with gestational age of 20 weeks by 1st trimester ultrasound dating and today`s measurements. EDC is 09/21/2024. 2. No anomaly evident. 3. Placental lakes. Dictated by Sky Schultz MD @ 05/05/2024?? Others: 1. Sonographic gestational age 34 weeks 1 day and sonographic due date 09/20/2024. Good correlation with dates. Normal interval growth. 2. Estimated weight 51st percentile. Abdominal circumference 86th percentile. Femur length 4th percentile. 08/10/2024? ? PAP 02/2023-NILM with HPV neg COVID: initial series, declined booster Flu: 10/17/2023 TDAP: 07/15/24 RSV: N/A 32wk Mental Health: 34wk Hgb: OB - Problem Based A/P Additional Plan (1) Pain during labor: Status: Acute (2) 39 weeks gestation of : Status: Acute (3) Spontaneous onset of labor: Status: Acute (4) History of hypertension: Status: Acute Plan ASSESSMENT:? 34 yo at 39.3 weeks gestation? complicated by:?hx of pp HTN, Elevated TSH, hep b non-immune, placenta lakes on anatomy US Labor type: Spontaneous, Early labor? Category 1 FHR pattern.?? Labor complicated by: None? GBS negative? ? PLAN:? 1. Routine intrapartum cares as ordered. Continue with expectant management? 2. Monitoring per policy, intermittent? 3. Patient is uncertain of her plan for pain. She is considering an epidural. IV is in placed. Candidate for analgesia of choice, if desired.?? 4. Patient encouraged to reposition and ambulate to promote physiologic labor and .? 5. Anticipate ? Delivery/Labor/Induction Plan Plan: expectant management OB Exam Physical Exam Vital signs: Temp Pulse Resp BP Pulse Ox 98.1 F 94 18 107/72 99 09/17/24 10:35 09/17/24 10:35 09/17/24 10:35 09/17/24 10:35 09/17/24 10:31 Narrative: Vitals Reviewed Constitutional:? Alert and oriented x3 HEENT:? Normocephalic, atraumatic Neck:? Supple Lungs:? Clear to auscultation bilaterally Heart:? Regular rate and rhythm, no murmur, rub or gallop Abdomen:? Soft, nontender, and gravid. Vertex by Liam's, confirmed with cervical exam. Extremities:? No edema or erythema Cervix: 6.5 cm/90%/-1 station/vertex with BBOW NST: 140 bpm/moderate variability/15x15 accelerations/no decelerations/contractions every 3-4 minutes lasting 90-120 seconds Detailed Labor and Delivery Exam Patient Gravid: yes
[2024-09-17 12:18] LABS: Hematocrit 36.1 % (33.0-51.0); Hemoglobin* 12.1 gm/dL (12.0-16.0); Immature Granulocytes Pct Auto 0.4 %; Mean Corpuscular HGB Conc 34 gm/dL (32-36); Mean Corpuscular Hemoglobin 30 pg (26-34); Mean Corpuscular Volume 89 fL (80-100); RDW Coefficient of Variation % 13.1 % (11.5-15.5); Red Blood Count 4.04 m/uL (4.00-5.20); White Blood Count* 11.19 K/uL (4.50-11.00)
[2024-09-17 12:19] LABS: Immature Granulocytes Abs Auto 0.00 K/uL (0.00-0.30); Lymphocytes Absolute Auto 0.90 K/uL (0.90-2.90); Slide Review Reflex No
[2024-09-17] MEDS: LIDOCAINE 2% (PF) 5 ML VIAL EPIDURAL (12:51)
[2024-09-17] MEDS: ROPIVACAINE 0.2% 100 ml 100 ML 12 MG EPIDURAL (12:51)
--- NOTE | 2024-09-17 12:56 | PM.ANBPRC ---
[facility] Medical History Abnormal TSH ?R79.89 - Other specified abnormal findings of blood chemistry (ICD-10) Hypertension, condition or complication ?O16.5 - Unspecified maternal hypertension, complicating the puerperium (ICD-10) Anemia ?D64.9 - Anemia, unspecified (ICD-10) BRCA1 gene mutation positive ?Z15.01 - Genetic susceptibility to malignant neoplasm of breast (ICD-10) ?Z15.09 - Genetic susceptibility to other malignant neoplasm (ICD-10) Family History (Updated 09/02/24 @ 09:15 by Eli Thorpe CNM) Mother GDM (gestational diabetes mellitus) Diabetes Preeclampsia Ovarian cancer Thyroid disease Maternal Grandfather Cardiovascular disease Thyroid disease Bladder cancer Father High cholesterol Depression Social History What is your current living situation?: I presently have a place to live Problems where you live: no known problems In the past 12 months, utilities in danger of being shut off: no In past 12 months, lack of transportation kept you from medical appts, meetings, work, or getting things needed for daily living: no In the past 12 mos, have been you worried that your food would run out before you had money to buy more?: never true In the past 12 mos, the food you bought just didn't last and you didn't have money to buy more?: never true Smoking Status: Never smoker How often does anyone, including family, friends and others, physically hurt you: never How often does anyone, including family, friends and others, insult or talk down to you: never How often does anyone, including family, friends and others, threaten you with harm: never How often does anyone, including family, friends and others, scream or curse at you: never Meds Home Medications and Allergies Home Medications ?Medication ?Instructions ?Recorded ?Confirmed ?Type Saccharomyces boulardii 250 mg 250 mg PO BID 02/10/24 09/17/24 History capsule (Daily Probiotic (S. boulardii)) docosahexaenoic acid 200 mg mg PO 02/10/24 09/16/24 History capsule ( DHA) vits 168-iron 27 mg-folic cap PO 02/10/24 09/16/24 History acid 800 mcg-omega3 235 mg capsule (One-A-Day -1) levothyroxine 25 mcg tablet 25 mcg PO QDAY #90 tabs 02/14/24 09/17/24 Rx aspirin 81 mg chewable tablet 81 mg PO QDAY 04/08/24 09/17/24 History Allergies Allergy/AdvReac Type Severity Reaction Status Date / Time No Known Drug Allergies Allergy Verified 09/16/24 08:49 Results Labs Labs: Laboratory Results - last 24 hr 09/17/24 12:12 WBC 11.19 H RBC 4.04 Hgb 12.1 Hct 36.1 MCV 89 MCH 30 MCHC 34 RDW Coeff of Marilee 13.1 Plt Count 141 Neut % (Auto) 87.1 H Lymph % (Auto) 7.6 L [place] % (Auto) 4.6 Eos % (Auto) 0.1 Baso % (Auto) 0.2 Neut # (Auto) 9.70 H Lymph # (Auto) 0.90 [place] # (Auto) 0.50 Eos # (Auto) 0.00 Baso # (Auto) 0.00 Abs Immat Gran (auto) 0.00 Imm/Tot Granulo (auto) 0.4 Vital Signs Vital Signs: Last Vital Signs Temp 98.1 F 09/17/24 10:35 Pulse 94 09/17/24 10:35 Resp 18 09/17/24 10:35 BP 107/72 09/17/24 10:35 Pulse Ox 100 09/17/24 12:55 Weight: 69.49 kg Height: 162.56 cm Anesthesia Procedures Epidural Insertion Patient Location: OB Start Time: 12:15 Stop Time: 12:57 Start Date: 09/17/24 Stop Date: 09/17/24 Reason for Block: procedure for pain Patient Position: sitting Performed By: Rigoberto Quinn Preanesthetic Checklist: IV checked, risks and benefits discussed, surgical consent, monitors and equipment checked, pre-op evaluation, timeout performed and anesthesia consent Prep: chlorhexidine gluconate Monitoring: blood pressure monitoring, continuous pulse oximetry and heart rate Approach: midline Vertebral Space: lumbar (1-5) Epidural Technique: JASMIN air Needle Type: Tuohy needle Injection Technique: continuous catheter Needle gauge: 17 Needle Length (cm): 10 cm Needle Insertion Depth (cm): 5 Catheter Gauge: 19 Catheter Type: multi-orifice Catheter at skin depth (cm): 12 Test Dose Result: negative and lidocaine 1.5% with epinephrine 1 to 200,000
[2024-09-17] MEDS: OXYTOCIN 30 unit/500 ML in NS 30 UNIT/500 ML BAG 300 UNIT IVPB (16:10)
--- NOTE | 2024-09-17 17:10 | W.PM.OBVAGDE ---
OB Procedure Vag Delivery Mother Details Mother Details: The patient is a 34 year-old, 2, now Para 2, admitted on 09/17/24 at 39.3 weeks gestation. : 2 Para: 2 Weeks Gestation: 39.3 Admission Date: 09/17/24 Additional Details Amniotic Membrane Status: SROM Amniotic Membrane Rupture Date: 09/17/24 Amniotic Membrane Rupture Time: 17:15 Amniotic Membrane Fluid Description: Clear Analgesia/Anesthesia Type: Epidural Waterbirth: No Pitcoin: Yes ([facility] only) Intrapartal Events: None Labor Onset: 09:30 Complete: 14:56 Pushin:07 Heart: heart tones during second stage were category II with variable delerations present during contractions, quick return to baseline after contractions. Moderate variability and accelerations present until delivery occurred. Delivery Details Delivery Date: 09/17/24 Delivery Time: 16:00 Route of delivery: Infant Gender: Female Infant Viability: Alive; Heart Rate Present Position at Delivery: OA Delivery Details: Patient was admitted for spontaneous onset of labor and progressed normally. She elected to utilize an epidural for pain management and desired some rest after placement. Patient was complete at 1456 and pushing at 1507. She pushed well and has SROM of clear fluid with pushing at 1551. of a viable female at 1600 in semi-fowlers on the bed. Vertex delivered OA. Nuchal cord x1 easily reduced at the perineum. No shoulder. Body delivered easily and without incident. Infant passed to mothers abdomen with a vigorous cry. Cord was clamped and cut at > 5 minutes. APGARS were 8 at one minute and 9 at five minutes respectively. Mouth was bulb suctioned. Intact placenta with a 3 vessel cord delivered spontaneously at 1617. There was a notable separation from maternal side to side in the middle of the placenta but when it is placed together it appears to be approximated well and no obvious signs of missing or disrupted pieces, cotyledons approximate when brought together. Sent to pathology. Fundus firm. Intact perineum, small abrasion noted a previous episiotomy site vaginally. QBL 50 cc. Mother and baby stable; mother plans to breastfeed. weight pending. 1 Minute Interval Total Score: 8 5 Minute Interval Total Score: 9 Additional Details Shoulder Dystocia: No Placenta Delivery Time: 16:17 Placental Delivery Description: Spontaneous Delivery repair: Vicryl Procedure Done: Global Blood Loss: 50 Laceration: None Blood Loss Measurement Type: QBL Bakri Used: No Sponge/Need Count Correct: Yes Cord Vessel Description: 3 Vessels, Nuchal Cord, Loose and Reduced Event Summary Status: Mother and infant were stable after delivery. Disposition: floor
[2024-09-17] MEDS: IBUPROFEN 600 MG TABLET PO (20:43)
[2024-09-18 03:52] VITALS: BP 122/81; PULSE 64; RESP 16; TEMP 36.4; O2SAT 98
[2024-09-18] MEDS: ACETAMINOPHEN 500 MG TABLET 1000 MG PO (03:53)
--- NOTE | 2024-09-18 07:58 | P.DS_ITS ---
DS: Providers Provider Date Seen: 09/18/24 Date of admission: 09/17/24 11:06 Primary care physician: Not a Local Provider Admitting Clinician: Cleo Black CNM Attending Physician on discharge: Gregorio CHAVIRA APRN Date of Discharge: 09/18/24 DS: Diagnosis Discharge Diagnosis (1) care and examination of lactating mother: Status: Acute Exam Narrative: Exam Narrative: GENERAL APPEARANCE:? normal affect, alert, no distress MOOD:? appropriate CHEST:? clear to auscultation HEART:? regular rate and rhythm ABDOMEN:? soft, non-tender the uterine fundus is At Umbilicus, Midline and is appropriate for the stage of recovery. PERINEUM:?deferred EXTREMITIES:? normal and minimal edema Const: Vital Signs, click to edit/add: Vital Signs - 24 hr 09/17/24 10:31 09/17/24 10:35 09/17/24 10:35 Temperature 98.1 F Pulse Rate 94 Pulse Rate [Pulse Oximeter] Respiratory Rate 18 Blood Pressure 107/72 Blood Pressure [Ri ght Arm] Pulse [facility]xim[facility] 12:55 09/17/24 12:56 09/17/24 12:58 Temperature Pulse Rate 94 94 Pulse Rate [Pulse Oximeter] Respiratory Rate Blood Pressure 110/67 106/66 Blood Pressure [Ri ght Arm] Pulse Oximetry [facility] 09/[facility]/24 13:00 09/17/24 13:02 09/17/24 13:04 Temperature Pulse Rate 96 93 103 H Pulse Rate [Pulse Oximeter] Respiratory Rate Blood Pressure 111/67 109/69 85/63 L Blood Pressure [Ri ght Arm] Pulse Oximetry [facility] 09/[facility]/24 13:05 09/17/24 13:06 09/17/24 13:08 Temperature Pulse Rate 89 99 Pulse Rate [Pulse Oximeter] Respiratory Rate Blood Pressure 109/63 109/65 Blood Pressure [Ri ght Arm] Pulse Oximetry [facility] 09/[facility]/24 13:10 09/17/24 13:15 09/17/24 13:19 Temperature Pulse Rate 93 80 Pulse Rate [Pulse Oximeter] Respiratory Rate Blood Pressure 106/65 109/64 Blood Pressure [Ri ght Arm] Pulse Oximetry [facility] 09/17/24 13:25 08/07/25 13:29 09/17/24 13:45 Temperature Pulse Rate 89 94 86 Pulse Rate [Pulse Oximeter] Respiratory Rate Blood Pressure 94/54 L 90/50 L 96/57 L Blood Pressure [Ri ght Arm] Pulse Oximetry Oxygen Delivery [facility] 09/17/24 14:00 09/17/24 14:15 09/17/24 14:30 Temperature Pulse Rate 75 76 71 Pulse Rate [Pulse Oximeter] Respiratory Rate Blood Pressure 92/53 L 93/54 L 100/61 Blood Pressure [Ri ght Arm] Pulse Oximetry Oxygen Delivery [facility] 09/17/24 14:45 09/17/24 14:55 09/17/24 15:00 Temperature 97.6 F Pulse Rate 78 92 Pulse Rate [Pulse Oximeter] Respiratory Rate Blood Pressure 104/62 119/73 Blood Pressure [Ri ght Arm] Pulse Oximetry Oxygen Delivery [facility] 09/17/24 15:30 09/17/24 15:47 09/17/24 16:18 Temperature Pulse Rate 110 H 93 86 Pulse Rate [Pulse Oximeter] Respiratory Rate Blood Pressure 100/75 112/64 102/55 L Blood Pressure [Ri ght Arm] Pulse Oximetry Oxygen Delivery [facility] 09/17/24 16:30 09/17/24 16:45 09/17/24 17:00 Temperature Pulse Rate 84 85 69 Pulse Rate [Pulse Oximeter] Respiratory Rate Blood Pressure 109/57 L 110/55 L 109/59 L Blood Pressure [Ri ght Arm] Pulse Oximetry [facility] 09/[facility] 17:15 09/17/24 17:30 09/17/24 17:45 Temperature Pulse Rate 90 82 83 Pulse Rate [Pulse Oximeter] Respiratory Rate Blood Pressure 124/65 108/58 L 106/62 Blood Pressure [Ri ght Arm] Pulse Oximetry Oxygen Delivery [facility] 09/17/24 18:00 09/17/24 19:48 09/17/24 23:50 Temperature 98.0 F 97.9 F Pulse Rate 86 Pulse Rate [Pulse Oximeter] 91 79 Respiratory Rate 16 16 Blood Pressure 107/63 Blood Pressure [Ri ght Arm] 113/73 100/66 Pulse Oximetry 98 [facility] Room Air 09/18/24 03:52 Temperature 97.6 F Pulse Rate Pulse Rate [Pulse Oximeter] 64 Respiratory Rate 16 Blood Pressure Blood Pressure [Ri ght Arm] 122/81 Pulse Oximetry 98 Oxygen Delivery [facility] Room Air OB - DS: Summary Hospital Course Hospital Course: Cherelle is a 34 y.o. G 2 P 2000 who was admitted to [facility] for spontaneous labor .? She had a NVD that was uncomplicated. The patient feels well.? The pain is well controlled with current medications.? She has no new complaints.? She is breast feeding and reports things are going well. the patient has done well.? Vitals have been stable.? She has remained afebrile.? Has a good appetite, is tolerating a general diet.? She is voiding without difficulty.? She is passing gas and has not had a bowel movement.? She is ambulating and denies any dizziness.? Has small amount of rubra lochia. She is planning condoms for prevention.? ?? Problems: none? ?? plan:? Discharge home with baby.? Follow up in 2 weeks and 6 weeks.? , may see if needed? Hgb 12.1 in labor, not checked PP due to minimal blood loss. ? Since subclinical hypothyroid treated prenatally to keep TSH in goal range and only on a 25mcg dose, will stop the levothyroxine now and check thyroid levels at 6 weeks. Pt desires to check her BP at home every few days since history of GHTN. She has remained normotensive thus far. ? Peripartum Data delivery method: Vaginal Laceration description: None Episiotomy description: None complications: none Infant Gender: Female Discharge Plan: Home Status at Discharge Functional status at discharge: independent ambulation Overall status at discharge: patient is progressing back to baseline Time Spent with Patient Time attestation: Total time spent providing and/or coordinating discharge services: Time spent: Less than 30 minutes Discharge Plan Discharge Disposition: Home, Self-Care Date of Admission: 09/17/24 11:06 Attending Provider on Discharge: Jillian Lynne Primary Care Provider: Provider,Not a Local Condition: Stable Anticipated Discharge Date/Time: 09/18/24 12:00 Discharge Medications: Continued DHA 200 mg capsule 200 mg PO DAILY PRN One-A-Day -1 27 mg iron- 800 mcg-235 mg capsule 1 cap PO DAILY PRN Saccharomyces boulardii [Daily Probiotic (S. boulardii)] 250 mg capsule 250 mg PO BID Discontinued aspirin 81 mg tablet,chewable 81 mg PO QDAY levothyroxine 25 mcg tablet 25 mcg PO QDAY Qty: 90 3RF Discharge Orders: Discharge Order (Routine); Ordered 09/18/24 Ordered By: Jillian Lynne Patient Education: OB Over the Counter Medication Information, OB Vaginal/Breast Feeding Additional Instructions: Discharge instructions were reviewed with the patient including signs and symptoms of infection and home going medications Nothing vaginally for 6 weeks: no tampons or intercourse Do not drive while taking narcotic pain medication(s) Off Work or School for 6 weeks Symptoms to report to doctor: * Bleeding that saturates more than one pad per hour * Passing clots larger than the size of a golf ball * Pain not relieved by prescribed medication * Fever above 100.4 degrees Fahrenheit * A foul vaginal odor * Difficulty in emotions, mood, and functions * Thoughts of hurting yourself and/or * Painful, reddened area in your breast * Any drainage, redness, or tenderness in your IV/epidural site * Severe headache that doesn't improve after taking medications * Changes in vision, including temporary loss of vision, blurred vision, and/or light sensitivity * Upper abdominal pain (usually under ribs on the right side) * Decrease in urination or painful, frequent urinating * Chest pain * Shortness of breath * Tenderness or pain with redness and/swelling in the calf(s) of your leg 2-week visit: discuss feeding concerns, review control options and screen for anxiety/depression. 6-week visit for an annual exam. consultation services are available to all mothers and babies for the first year after delivery.? To make an appointment, please call [phone]. Activity Level: Activity as Tolerated Discharge Diet: Regular Follow Up Appointments: [facility] [Provider Group] Forms: MyHealth Info Instructions
[2024-09-18 08:00] VITALS: BP 104/69; PULSE 76; RESP 14; TEMP 36.8; O2SAT 96
[2024-09-18] MEDS: DOCUSATE SODIUM 100 MG CAPSULE PO (08:04)
[2024-09-18] MEDS: IBUPROFEN 600 MG TABLET PO (08:04)
[2024-09-18 12:15] VITALS: BP 108/76; PULSE 68; RESP 16; TEMP 36.7; O2SAT 96
--- NOTE | 2024-09-18 14:09 | PM.ANPOST ---
Post Anesthesia Note Post Anesthesia Note Patient seen: Inpatient Respiratory Status: adequate Cardiovascular Status: adequate Mental Status: baseline Pain: adequate Temp: baseline Anesthetic awareness: N/A Complications: none Follow care: none
[2024-09-18 18:06] VITALS: BP 113/75; PULSE 71; RESP 16; TEMP 36.4; O2SAT 97
== END 2024-09-18 18:45 | disposition home or self-care (01) | DRG 807 ==
LOC: OB OUT 11:09 → OB 11:09
PROVIDERS: Absent Provider Advanced Practice Midwife; Admitting Provider Advanced Practice Midwife; Referring Provider Advanced Practice Midwife; Visit Provider Advanced Practice Midwife
DX: O99.284 Endocrine, nutritional and metabolic diseases complicating childbirth (principal); E03.8 Other specified hypothyroidism; Z37.0 Single live birth
CPT/HCPCS: 01967; 36415; 85025; 86592; A9270; J2795

== ENCOUNTER 2024-11-04 08:36 | Outpatient (CLI) | payer OTHER, SELFPAY | END 2024-11-04 08:37 | disposition home or self-care (01) | LOC: LKVREF 08:36 | PROVIDERS: Visit Provider Advanced Practice Midwife | DX: E03.8 Other specified hypothyroidism (principal); R79.89 Other specified abnormal findings of blood chemistry | CPT/HCPCS: 84443 ==